=== PATIENT | female | born 1965 | race Caucasian/White ===

== ENCOUNTER 2020-12-26 09:11 | Outpatient (REF) | payer OTHER, SELFPAY ==
[2020-12-26 09:38] LABS: MANUAL DIFF FLAG NO
[2020-12-26 09:42] LABS: Basophils Percent Auto 0.5 % (0-2); Eosinophils Absolute Auto 0.2 X10*3/uL (0.0-0.4); Eosinophils Percent Auto 2.1 % (0-4); Hemoglobin 12.6 g/dl (12.0-16.0); Imm Gran Abs Auto 0.02 X10*3/uL (0.00-0.03); Imm Gran Pct Auto 0.2 % (0.0-0.4); Lymphocytes Absolute Auto 3.3 X10*3/uL (1.2-4.9); Lymphocytes Percent Auto 37.4 % (20-40); Mean Corpuscular HGB Conc 32.3 g/dl (31.0-35.0); Mean Corpuscular Hemoglobin 29.6 pg (27.0-33.0); Mean Corpuscular Volume 91.8 fL (80-98); Mean Platelet Volume 9.5 fL (9.4-12.3); Monocytes Absolute Auto 0.6 X10*3/uL (0.1-1.2); Monocytes Percent Auto 7.1 % (2-11); Neutrophils Absolute Auto 4.7 X10*3/uL (2.0-8.3); Neutrophils Percent Auto 52.7 % (45-73); Platelet Count 273 X10*3/uL (160-400); Red Blood Count 4.25 X10*6/uL (4.20-5.50); Red Cell Distribution Width 12.7 % (11.0-16.0); White Blood Count 8.9 X10*3/uL (4.8-10.8)
[2020-12-26 10:28] LABS: Anion Gap 7 (12-20); Blood Urea Nitrogen 15 mg/dL (9-16); Carbon Dioxide 30 mmol/L (22-29); Chloride 108 mmol/L (96-108); Estimated Glomerular Filt Rate > 60; Glucose Random 74 mg/dL (60-115); Sodium 141 mmol/L (135-145)
[2020-12-26 11:38] LABS: Erythrocyte Sedimentation Rate 10 MM/HR (0-20)
== END 2020-12-26 09:12 | disposition home or self-care (01) ==
LOC: HO.LAB 09:11
PROVIDERS: Visit Provider Psychiatry & Neurology Neurology
DX: G44.209 Tension-type headache, unspecified, not intractable (principal)
CPT/HCPCS: 36415; 80048; 85025; 85652

== ENCOUNTER 2021-02-02 10:23 | Outpatient (REF) | payer OTHER, SELFPAY ==
--- NOTE | ~2021-02-02 | CT_ITS ---
EXAMINATION: CT HEAD WITHOUT CONTRAST CLINICAL INFORMATION: Tension headaches. COMPARISON: None TECHNIQUE: Contiguous axial imaging was performed from the skull base to vertex without intravenous administration of contrast. This CT examination was performed using dose optimization techniques as appropriate, variously including the following: *Automated exposure control *Adjustment of mA and/or kV according to patient size (this includes techniques or standardized protocols for targeted exams where dose is matched to indication/reason for exam; i.e. extremities or head) *Use of iterative reconstruction technique DLP: 764 mGy-cm FINDINGS: There is no evidence of acute intracranial hemorrhage or territorial infarction. No abnormal mass effect or midline shift is seen. There is a small hypodensity in the upper left medulla oblongata on axial image 6/2. Hammond to white matter differentiation is well preserved. No extra-axial fluid collections are identified. The ventricles are normal in size. There is no abnormal attenuation within the brain parenchyma. The osseous structures and soft tissues are normal. The mastoid air cells and visualized portions of the paranasal sinuses are well aerated. CT/CT head/brain wo con IMPRESSION: No acute intracranial process seen. There is a small hypodensity in the left medulla oblongata visualized on axial and sagittal projection. Question cystic neoplasm or volume averaging subarachnoid space along the fourth ventricle. Recommend MRI brain correlation.
== END 2021-02-02 10:24 | disposition home or self-care (01) ==
LOC: HO.CT 10:23
PROVIDERS: Visit Provider Psychiatry & Neurology Neurology
DX: G44.209 Tension-type headache, unspecified, not intractable (principal)
CPT/HCPCS: 70450

== ENCOUNTER 2021-03-15 08:16 | Outpatient (REF) | payer OTHER, SELFPAY ==
--- NOTE | ~2021-03-15 | MR_ITS ---
MR BRAIN WITHOUT AND WITH CONTRAST CLINICAL INFORMATION: Left medullary lesion on CT. Headache. COMPARISON: CT head 02/02/2021. TECHNIQUE: Multiplanar, multisequence MRI of the brain was obtained before and after the intravenous administration of 7.5 mL Gadavist. FINDINGS: There is no pathologic intracranial enhancement. Mild chronic microangiopathy. There is no hydrocephalus, extra-axial surface collection, or herniation. The major flow voids at the skull base are preserved. There is no acute infarct on diffusion-weighted imaging. There is no intracranial hemorrhage on the gradient recalled echo acquisition. The midline structures are normal. The cerebellar tonsils are normally positioned. The cerebellum and brainstem are normal. The craniocervical junction is normal. Osseous marrow signal intensity is homogenous. The visualized soft tissues are unremarkable. MR/MR head/brain wo/w con IMPRESSION: Previously seen apparent hypodensity within the left medulla on CT was artifactual. There is no abnormal signal within the brainstem. Mild chronic microangiopathy. No enhancing lesions.
== END 2021-03-15 08:17 | disposition home or self-care (01) ==
LOC: HO.MRI 08:16
PROVIDERS: Visit Provider Psychiatry & Neurology Neurology
DX: G93.9 Disorder of brain, unspecified (principal)
CPT/HCPCS: 70553; A9585

== ENCOUNTER 2021-05-18 09:46 | Outpatient (REF) | payer OTHER, SELFPAY ==
[2021-05-18 10:03] LABS: MANUAL DIFF FLAG NO
[2021-05-18 10:51] LABS: Basophils Absolute Auto 0.1 X10*3/uL (0.0-0.2); Basophils Percent Auto 0.6 % (0-2); Eosinophils Absolute Auto 0.1 X10*3/uL (0.0-0.4); Eosinophils Percent Auto 1.5 % (0-4); Hematocrit 38.7 % (37.0-47.0); Hemoglobin 12.6 g/dl (12.0-16.0); Imm Gran Abs Auto 0.02 X10*3/uL (0.00-0.03); Imm Gran Pct Auto 0.2 % (0.0-0.4); Lymphocytes Absolute Auto 3.6 X10*3/uL (1.2-4.9); Lymphocytes Percent Auto 41.2 % (20-40); Mean Corpuscular HGB Conc 32.6 g/dl (31.0-35.0); Mean Corpuscular Hemoglobin 29.7 pg (27.0-33.0); Mean Corpuscular Volume 91.3 fL (80.0-98.0); Mean Platelet Volume 9.7 fL (9.4-12.3); Monocytes Absolute Auto 0.6 X10*3/uL (0.1-1.2); Monocytes Percent Auto 6.7 % (2-11); Neutrophils Absolute Auto 4.3 x10*3/uL (2.0-8.3); Neutrophils Percent Auto 49.8 % (45-73); Platelet Count 282 X10*3/uL (160-400); Red Blood Count 4.24 X10*6/uL (4.20-5.50); Red Cell Distribution Width 12.9 % (11.0-16.0); White Blood Count 8.7 X10*3/uL (4.8-10.8)
[2021-05-18 11:24] LABS: Alanine Aminotransferase 28 U/L (0-31); Alkaline Phosphatase 63 U/L (39-117); Anion Gap 10 (12-20); Aspartate Amino Transferase 18 U/L (5-31); Bilirubin Total 0.4 mg/dL (0.0-1.0); Blood Urea Nitrogen 12 mg/dL (9-16); Calcium 8.8 mg/dL (8.4-10.2); Carbon Dioxide 28 mmol/L (22-29); Chloride 104 mmol/L (96-108); Cholesterol 262 mg/dL; Estimated Glomerular Filt Rate > 60; Glucose Fasting 82 mg/dL (60-99); HDL Cholesterol 41 mg/dL; LDL Cholesterol Calculated 182 mg/dl; Potassium 4.2 mmol/L (3.3-5.1); Sodium 138 mmol/L (135-145); Total Protein 7.3 g/dL (6.5-8.0); Triglycerides 196 mg/dL
== END 2021-05-18 09:47 | disposition home or self-care (01) ==
LOC: HO.LAB 09:46
PROVIDERS: PCP Nurse Practitioner Family; Visit Provider Nurse Practitioner Family
DX: Z00.00 Encounter for general adult medical examination without abnormal findings (principal); Z13.1 Encounter for screening for diabetes mellitus; E78.5 Hyperlipidemia, unspecified; E78.00 Pure hypercholesterolemia, unspecified; I10 Essential (primary) hypertension
CPT/HCPCS: 36415; 80053; 80061; 84443; 85025

== ENCOUNTER 2022-11-28 10:50 | Outpatient (REF) | payer OTHER, SELFPAY ==
[2022-12-01 01:04] LABS: HPV mRNA E6/E7 rflx Not Detected (Not Detected)
== END 2022-11-28 10:51 | disposition home or self-care (01) ==
LOC: HO.LAB 10:50
PROVIDERS: Visit Provider Internal Medicine
DX: Z01.419 Encounter for gynecological examination (general) (routine) without abnormal findings (principal)
CPT/HCPCS: 87624; 88142

== ENCOUNTER 2022-11-29 10:30 | Outpatient (REF) | payer OTHER, SELFPAY ==
[2022-11-29 11:04] LABS: MANUAL DIFF FLAG NO
[2022-11-29 11:29] LABS: Basophils Absolute Auto 0.1 X10*3/uL (0.0-0.2); Basophils Percent Auto 0.8 % (0-2); Eosinophils Absolute Auto 0.2 X10*3/uL (0.0-0.4); Hematocrit 39.5 % (37.0-47.0); Hemoglobin 12.7 g/dl (12.0-16.0); Imm Gran Abs Auto 0.03 X10*3/uL (0.00-0.03); Imm Gran Pct Auto 0.3 % (0.0-0.4); Lymphocytes Absolute Auto 3.8 X10*3/uL (1.2-4.9); Lymphocytes Percent Auto 41.2 % (20-40); Mean Corpuscular HGB Conc 32.2 g/dl (31.0-35.0); Mean Corpuscular Hemoglobin 29.3 pg (27.0-33.0); Mean Platelet Volume 9.4 fL (9.4-12.3); Monocytes Absolute Auto 0.5 X10*3/uL (0.1-1.2); Monocytes Percent Auto 5.4 % (2-11); Neutrophils Absolute Auto 4.7 x10*3/uL (2.0-8.3); Neutrophils Percent Auto 50.3 % (45-73); Platelet Count 281 X10*3/uL (160-400); Red Blood Count 4.34 X10*6/uL (4.20-5.50); Red Cell Distribution Width 12.6 % (11.0-16.0); White Blood Count 9.2 X10*3/uL (4.8-10.8)
[2022-11-29 12:10] LABS: Alanine Aminotransferase 55 U/L (0-31); Anion Gap 12 (12-20); Aspartate Amino Transferase 29 U/L (5-31); Blood Urea Nitrogen 11 mg/dL (9-16); Calcium 9.1 mg/dL (8.4-10.2); Carbon Dioxide 26 mmol/L (22-29); Chloride 106 mmol/L (96-108); Cholesterol 130 mg/dL; Estimated Glomerular Filt Rate > 60; Glucose Fasting 86 mg/dL (60-99); HDL Cholesterol 43 mg/dL; LDL Cholesterol Calculated 62 mg/dl; Potassium 4.4 mmol/L (3.3-5.1); Sodium 140 mmol/L (135-145); Triglycerides 128 mg/dL
[2022-11-29 12:23] LABS: Folate 17.4 ng/mL (> or = 4.0); TSH reflex Free T4 1.62 uIU/mL (0.32-4.0); Vitamin B12 1202 pg/mL (200-900); Vitamin D 25-OH Total 36.1 ng/mL (>30)
== END 2022-11-29 10:31 | disposition home or self-care (01) ==
LOC: HO.HMGCLDS 10:30
PROVIDERS: PCP Internal Medicine; Visit Provider Internal Medicine
DX: Z13.1 Encounter for screening for diabetes mellitus (principal); R51.9 Headache, unspecified; E28.319 Asymptomatic premature menopause; E78.5 Hyperlipidemia, unspecified
CPT/HCPCS: 36415; 80048; 80061; 82306; 82607; 82746; 84443; 84450; 84460; 85025

== ENCOUNTER → 2022-12-20 08:51 | Outpatient (BNVA) | payer OTHER, SELFPAY | PROVIDERS: Visit Provider Nurse Practitioner | DX: Z01.818 Encounter for other preprocedural examination (principal) | CPT/HCPCS: 99202 ==

== ENCOUNTER 2023-01-11 08:36 | Outpatient (REF) | payer OTHER, SELFPAY ==
--- NOTE | ~2023-01-11 | MM_ITS ---
EXAMINATION: MM SCREENING DIGITAL BREAST TOMOSYNTHESIS, BILATERAL CLINICAL INFORMATION: Screening. Asymptomatic. The lifetime risk of breast cancer based on the Tyrer-Cuzick Model is 2.9%. COMPARISON: Mammography: There are no prior mammograms for comparison. TECHNIQUE: Digital breast tomosynthesis is performed in both the craniocaudal and mediolateral oblique views along with computer-aided detection (CAD). Synthesized 2D images are generated from the tomosynthesis. FINDINGS: There are scattered areas of fibroglandular density (ACR BI-RADS breast composition Category b). There are no significant masses, abnormal calcifications, or other abnormalities. There are scattered, punctate, benign calcifications in the upper quadrants of each breast. MM/MM tomosynthesis screening BI IMPRESSION: No mammographic evidence of malignancy. ASSESSMENT: BI-RADS BI-RADS 2 - Benign Findings RECOMMENDATION: Routine annual mammography screening. 1 year F/U This examination should not preclude the clinical evaluation of a suspicious palpable abnormality. This patient's information was entered into a reminder system with a target due date for their next mammogram.
== END 2023-01-11 08:37 | disposition home or self-care (01) ==
LOC: HO.MAMMO 08:36
PROVIDERS: Visit Provider Internal Medicine
DX: Z12.31 Encounter for screening mammogram for malignant neoplasm of breast (principal)
CPT/HCPCS: 77063; 77067

== ENCOUNTER → 2023-01-11 08:45 | Outpatient (BNV) | payer OTHER, SELFPAY | PROVIDERS: Visit Provider Radiology Diagnostic Radiology | DX: Z12.31 Encounter for screening mammogram for malignant neoplasm of breast (principal) | CPT/HCPCS: 77063; 77067 ==

== ENCOUNTER 2023-05-24 08:45 | Outpatient (REF) | payer OTHER, SELFPAY ==
[2023-05-24 10:48] LABS: Alanine Aminotransferase 24 U/L (0-31); Aspartate Amino Transferase 17 U/L (5-31); Cholesterol 132 mg/dL (<200); HDL Cholesterol 46 mg/dL (>40); LDL Cholesterol Calculated 64 mg/dL (<100); Triglycerides 114 mg/dL (<150)
[2023-05-24 11:17] LABS: Folate 14.1 ng/mL (> or = 4.0); Vitamin B12 805 pg/mL (200-900)
== END 2023-05-24 08:46 | disposition home or self-care (01) ==
LOC: HO.HMGCLDS 08:45
PROVIDERS: PCP Internal Medicine; Visit Provider Internal Medicine
DX: R74.8 Abnormal levels of other serum enzymes (principal); E78.5 Hyperlipidemia, unspecified
CPT/HCPCS: 36415; 80061; 82607; 82746; 84450; 84460

== ENCOUNTER 2023-05-29 10:40 | Outpatient (AMB) | payer OTHER, SELFPAY ==
--- NOTE | 2023-05-29 10:53 | A.OFFPC_ITS ---
Vital Signs 05/29/23 10:54 Height 5 ft 6 in Weight 159 lb 2 oz BMI 25.7 BP 128/82 Blood Pressure Location Lt brachial Position Sitting Pulse 64 Pulse Source Pulse Oximeter Pulse Oximetry (%) 97 Oxygen Delivery Method Room Air Intake Visit Reasons: 6m follow up lipids Intake Note: pt is here to follow up for lab results Allergies atorvastatin Adverse Reaction (Mild, Verified 11/06/23 09:39) Headaches Medication List - Last Reconciled 05/29/23 by Antoinette Varghese MD peg 3350-electrolytes 236-22.74-6.74 -5.86 gram (Golytely) 240 mL PO Q10M 1 day rosuvastatin 10 mg PO DAILY Tobacco use date assessed: 05/29/23 Dental Screening Dental Screen Date: 05/29/23 Did you have a dental visit in the last 12 months?: Yes Did you have a dental problem in the last 6 months where you did not have access to dental care?: No Was dental information given to patient?: Patient has dentist HPI 6m follow up lipids HPI Details 57-year-old lady here today for follow-u p on her lipids. Currently on rosuvastatin 10 mg taken once a day. Has been compliant with healthy eating habits, but admits to not getting any regular exercise. Recent fasting labs done showed normal lipids and liver enzymes, vitamin B12 also has returned to normal levels. [facility]LY [facility] Medical History Early menopause occurring in patient age younger than 45 years Dyslipidemia Surgical History History of Family History Mother Prediabetes Father Family history of prostate problems Maternal Aunt Alzheimer's dementia Social History Housing: House Patient Tobacco Use Status: Never used Tobacco Tobacco use type: Cigarette e-Cigarette/Vaping Use: Never Used Second Hand Smoke Exposure: No service: No Current occupational status: employed Cognitive needs: No Hearing needs: No Vision needs: No Questionnaire Thrive Questionnaire Date Thrive assessed: 11/28/22 LEO-7 AMB Questionnaire LEO-7 Date LEO - 7 assessed: 11/28/22 Source: Developed by Drs. Blayne Quiñones, Herminia Jensen, Marek Thurman and colleagues, with an educational chandana from [employer]. Review of Systems Const Denies body aches, Denies fatigue, Denies fever(s), Reports headache(s) (occasional) and Denies weakness Eyes Denies change in vision ENT Denies dizziness, Reports headache(s) (occasional), Denies nasal congestion, Denies nasal discharge and Denies sore throat Card Denies chest pain, Denies lightheadedness, Denies palpitations and Denies dyspnea Resp Details: Has intermittent episodes of coughing fits after talking for extended periods of time Denies chest congestion, Denies dyspnea and Denies wheezing GI Denies abdominal pain, Denies change in bowel habits and Denies heartburn Denies hematuria, Denies urinary frequency, Denies dysuria and Denies urinary urgency Musc Reports no additional complaints Neuro Denies dizziness, Reports headache(s) (occasional) and Denies weakness Psych Reports no additional complaints Endo Details: Vasomotor symptoms with hot flashes Denies fatigue, Denies polydipsia, Denies polyuria and Denies palpitations Hong/Lymph Denies easy bruising Aller/Immun Denies seasonal rhinorrhea and Denies wheezing Physical exam (Primary Care) Vital Signs: Last Vital Signs Pulse 64 05/29/23 10:54 BP 128/82 05/29/23 10:54 Pulse Ox 97 05/29/23 10:54 Oxygen Delivery Method Room Air 05/29/23 10:54 BMI result Body Mass Index 25.7 Tobacco/Smoking Status: Tobacco use Status Tobacco use date assessed 05/29/23 05/29/23 10:58 Patient Tobacco Use Status Never used Tobacco 05/29/23 10:53 Tobacco use type Cigarette 05/29/23 10:53 e-Cigarette/Vaping Use Never Used 05/29/23 10:53 Thrive Assessment: Date of Thrive Assessment Date Thrive assessed 11/28/22 05/29/23 10:53 Const General: cooperative, no acute distress, well developed, alert and awake HENMT Head: Yes normocephalic Ears: external ears normal and TM's normal bilaterally General nose exam: Normal external nose present Face and sinus: Yes face symmetric Mouth: Normal oral and palatal mucosa present, tongue normal, oropharynx normal and moist mucous membranes Throat: Yes posterior oropharynx normal, Yes tonsils normal and Yes uvula midline Eyes General: appearance normal, both eyes and all related structures Eyelids: Yes eyelids normal Conjunctivae: conjunctivae normal Sclerae: sclerae normal Pupils: Equal, round and reactive pupils present Neck Neck: Yes normal visual inspection and Yes no lymphadenopathy Lymphatic: no lymphadenopathy noted Resp Effort & Inspection: normal respiratory effort and able to speak in complete sentences Auscultation: clear to auscultation bilaterally Cardio Rate: regular rate Rhythm: regular rhythm Heart sounds: S1 normal heart sound present and S2 normal heart sound present Neuro General: gait normal and moves all extremities Cranial nerves: Yes Equal, round and reactive pupils present Gait exam (Neuro): Normal gait present Results Reviewed Results Reviewed: ENTERED: 05/24/23 RAYA MCCRAY: ORDERED: AST, ALT, Lipid Panel Test Result Flag Reference Site AST (GOT) 17 5-31 U/L ALT (GPT) 24 0-31 U/L Triglyceride 114 <150 mg/dL Desirable Triglyceride: less than 150 mg/dL Borderline High Triglyceride 150-199 mg/dL High Triglyceride: 200-499 mg/dL Very High Triglyceride: greater than or equal to 5OO mg/dL Cholesterol 132 <200 mg/dL Desirable Cholesterol: less than 200 mg/dL Borderline High Cholesterol: 200-239 mg/dL High Cholesterol: greater than 239 mg/dL LDL Calculated 64 <100 mg/dL Desirable LDL: less than 100 mg/dL Near Optimal/Above Optimal LDL: 110-129 mg/dL Borderline High LDL: 130-159 mg/dL High LDL: 160-189 mg/dL Very High LDL: greater than or equal to 190 mg/dL HDL 46 >40 mg/dL Desirable HDL: greater than 40 mg/dL Note: This HDL assay may give artificially low results in patients with liver disease. Assessment and Plan Assessment & Plan (1) Dyslipidemia: Code(s): E78.5 - Hyperlipidemia, unspecified Plan: Reviewed recent fasting lipid profile with patient with levels within normal limits . Continue rosuvastatin 10 mg daily , in addition to adherence to low-cholesterol diet and regular exercise, at least 30 minutes 3 to 4 times a week. Advised patient to make healthy food choices, eat more fruits, vegetables, whole grains, wild caught fish and low-fat dairy. Limit amount of meat and fried or fatty food products, as well as processed foods and fast foods. Follow-up scheduled with repeat fasting lipid panel in months. Coding Level of Care Code Est Pt Level 4 (13097) Complex EM visit Add On G2211 Diagnoses Dyslipidemia E78.5
[2023-05-29 10:54] VITALS: BP 128/82; PULSE 64; O2SAT 97; BMI 25.7
== END 2023-05-29 12:33 | disposition home or self-care (01) ==
PROVIDERS: Visit Provider Internal Medicine
DX: E78.5 Hyperlipidemia, unspecified (principal)
CPT/HCPCS: 99499

== ENCOUNTER 2023-06-07 09:22 | Day surgery (SDC) | payer OTHER, SELFPAY ==
--- NOTE | 2023-06-06 10:08 | HO.ANESPROP2 ---
Documented by User: Elena Kennedy NP 06/06/23 10:09 HPI - Anesthesia Eval Consult details Narrative: 57yo F for Colonoscopy PMFSH Active Problems Active Problems: All Active Problems (Updated 05/29/23 @ 11:48 by Antoinette Varghese MD) Early menopause occurring in patient age younger than 45 years (Acute) Dyslipidemia (Acute) Headache (Acute) Past Medical History Medical History (Updated 05/29/23 @ 11:48 by Antoinette Varghese MD) Early menopause occurring in patient age younger than 45 years Dyslipidemia Family History Family History (Updated 05/29/23 @ 11:49 by Antoinette Varghese MD) Mother Prediabetes Father Family history of prostate problems Maternal Aunt Alzheimer's dementia Surgical History Surgical History History of Social History Social History Housing: House Patient Tobacco Use Status: Never used Tobacco Tobacco use type: Cigarette e-Cigarette/Vaping Use: Never Used Second Hand Smoke Exposure: No Are you DNR?: No Advance Directives: No Advance Directives Information Provided: Yes Nutrition Risks: No Nutritional Risk service: No Current occupational status: employed Cognitive needs: No Hearing needs: No Vision needs: No Meds Allergies Allergy/AdvReac Type Severity Reaction Status Date / Time atorvastatin AdvReac Mild Headaches Verified 06/07/23 10:55 Exam Pertinent Lab Results Pertinent Lab Results: Laboratory Tests 11/29/22 10:04 WBC 9.2 Hgb 12.7 Hct 39.5 Plt Count 281 Sodium 140 Potassium 4.4 Chloride 106 Carbon Dioxide 26 BUN 11 Creatinine 0.70 Assessment and Plan Assessment Anesthesia Assessment: Chart Reviewed Documented by User: Ida Nevarez MD 06/07/23 11:01 PMFSH Past Medical History Medical History (Updated 05/29/23 @ 11:48 by Antoinette Varghese MD) Early menopause occurring in patient age younger than 45 years Dyslipidemia Family History Family History (Updated 05/29/23 @ 11:49 by Antoinette Varghese MD) Mother Prediabetes Father Family history of prostate problems Maternal Aunt Alzheimer's dementia Family history of problems with anesthesia: No Surgical History Surgical History History of History of Problems with Anesthesia: No Social History Social History Housing: House Patient Tobacco Use Status: Never used Tobacco Tobacco use type: Cigarette e-Cigarette/Vaping Use: Never Used Second Hand Smoke Exposure: No Are you DNR?: No Advance Directives: No Advance Directives Information Provided: Yes Nutrition Risks: No Nutritional Risk service: No Current occupational status: employed Cognitive needs: No Hearing needs: No Vision needs: No Meds Allergies Allergy/AdvReac Type Severity Reaction Status Date / Time atorvastatin AdvReac Mild Headaches Verified 06/07/23 10:55 Exam Airway Mallampati Class: II TM Dist: >3cm Neck ROM: Full Heart: rrr Lungs: cta Assessment and Plan Assessment Anesthesia Assessment: Anesthesia Plan Discussed Final Anesthetic Review Family History of Problems with Anesthesia: No History of Problems with Anesthesia: No NPO: Yes ASA Class: II Final Preanesthetic Review: No Changes in Pt Med Stat, Meds/Allgs Chart Reviewed and Consent Obtained/Reviewed Patient Risk: Intermediate Procedure Risk: Intermediate Anesthetic Plan Anesthetic Plan: MAC: Disposition: Standard PACU
--- NOTE | 2023-06-07 10:35 | MHC.SHP ---
Pre-Procedural Eval Section A Date of Service: 06/07/23 The patient is an INPATIENT: No The History & Physical has been completed within 30 days and I have reviewed it.: No Section B Chief Complaint: Colon cancer screening Relevant Family History (Specify if Yes): No Relevant Social History: None Present Medications: see Short Stay Collaborative assessment Medical History: Significant History (Dyslipidemia Early menopause occurring in patient age younger than 45 years Throat irritation) History of Previous Operations: Relevant previous surgery/procedure and date(s) (History of ) Allergies: Allergies Allergy/AdvReac Type Severity Reaction Status Date / Time atorvastatin AdvReac Mild Headaches Verified 05/29/23 11:47 Plan Diagnosis/Plan: Unchanged I have reviewed the history and physical and performed a pertinent physical examination on my patient. No changes have occurred unless specified. Time Spent With Patient Time: Total time managing care of this patient today ____ minutes.
[2023-06-07] MEDS: Lactated Ringers 1,000 ML 100 ML IVCONT (10:57)
[2023-06-07 11:07] VITALS: BP 125/83; PULSE 85; RESP 18; TEMP 36.6; O2SAT 98; BMI 24.9
--- NOTE | 2023-06-07 11:45 | W.PM.OPN ---
Operative Note Operative Note Date of Service: 06/07/23 Narrative: COLONOSCOPY TILL CECUM WITH BIOPSIES Pre-op diagnosis: Colon cancer screening (1st colonoscopy) Post-op diagnosis:? Colon polyps, diverticulosis, hemorrhoids Endoscopist:? Claudia Velasquez MD Anesthesia:?MAC Consent: Indications for the procedure and potential complications of bleeding, perforation, reaction to medications and missed diagnosis were discussed with the patient and informed consent was obtained. Instrument: Olympus PCF H 190 L variable stiffness pediatric colonoscope Monitoring: Vital signs and clinical assessment, intermittent blood pressure monitoring, continuous EKG monitoring, Pulse oximetry and Carbon Dioxide monitoring were done throughout the procedure. Please see anesthesia flowsheet. Colon withdrawl time was 14 minutes. Procedure: The patient was placed in the left lateral decubitis position and pre-procedure medications were administered. After a digital rectal examination of the ano-rectum, the video colonoscope was inserted into the rectum and advanced through the colon to the cecum. The colonoscope was slowly withdrawn in a retrograde panoramic fashion and the colon mucosa was carefully examined including a retroflexed view of the rectum. Findings and interventions are described below. Procedure Difficulty: Without difficulty Findings: Terminal Ileum: Not evaluated Cecum: Normal Ascending Colon: A 2-3 mm sessile polyp in the mid AC - removed with a cold biopsy Scattered moderate diverticulosis throughout the colon Transverse Colon: Scattered moderate diverticulosis throughout the colon Descending Colon: Scattered moderate diverticulosis throughout the colon Sigmoid Colon: A 4-5 mm sessile polyp versus inverted diverticulum - biopsied. Moderate diverticulosis Rectum: Normal Ano-rectum: Moderate internal hemorrhoids Colon preparation: Excellent Impression and Post Procedure Diagnosis: Colonoscopy Findings: Two small polyps removed Moderate diverticulosis seen in the entire colon Moderate hemorrhoids on retroflexed exam. Plan: Await pathology results Patient has an appointment on 06/19/23 in the [facility] with Diane Peralta NP. Repeat Colonoscopy interval based on path results - in 5 years if polyps are adenomatous and 10 years if polyps are hyperplastic. Above findings were reviewed with the patient and colon polyps and diverticulosis handouts were given in the discharge area
[2023-06-07 11:48] VITALS: BP 97/65; PULSE 70; RESP 16; TEMP 37.1; O2SAT 97
[2023-06-07 11:53] VITALS: BP 109/70; PULSE 67; RESP 16; O2SAT 97
[2023-06-07 12:03] VITALS: BP 116/78; PULSE 68; RESP 20; TEMP 36.4; O2SAT 98
[2023-06-07] MEDS: Acetaminophen 325 MG TABLET 650 MG PO (12:06)
== END 2023-06-07 12:30 | disposition home or self-care (01) ==
PROVIDERS: PCP Internal Medicine; Visit Provider Internal Medicine Gastroenterology
PROC: 0DJD8ZZ Inspection of Lower Intestinal Tract, Via Natural or Artificial Opening Endoscopic (ICD-10-PCS; CPT 45378; principal; 2023-06-07 11:00)
DX: Z12.11 Encounter for screening for malignant neoplasm of colon (principal); K63.5 Polyp of colon; K57.30 Diverticulosis of large intestine without perforation or abscess without bleeding; K64.8 Other hemorrhoids; E78.5 Hyperlipidemia, unspecified; Z79.02 Long term (current) use of antithrombotics/antiplatelets
CPT/HCPCS: 45380; 88305; J2704

== ENCOUNTER → 2023-06-07 09:22 | Outpatient (BNV) | payer OTHER, SELFPAY | PROVIDERS: PCP Internal Medicine; Visit Provider Internal Medicine Gastroenterology | DX: Z12.11 Encounter for screening for malignant neoplasm of colon (principal); K57.30 Diverticulosis of large intestine without perforation or abscess without bleeding; K64.8 Other hemorrhoids; D12.2 Benign neoplasm of ascending colon; D12.5 Benign neoplasm of sigmoid colon | CPT/HCPCS: 45380 ==

== ENCOUNTER 2023-06-19 09:22 | Outpatient (AMB) | payer OTHER, SELFPAY ==
--- NOTE | 2023-06-19 09:24 | A.OFFVIS_ITS ---
Intake Vital Signs 06/19/23 09:27 Height 5 ft 6 in Weight 155 lb BMI 25.0 BP 120/77 Blood Pressure Location Lt brachial Position Sitting Pulse 67 Intake Visit Reasons: s/p colon francois Intake Note: Patient presents to in office visit today in post operative follow up s/p colonoscopy. CC: Arelis underwent colonoscopy on 06/07/[address] Velasquez. Patient reports doing very well today and vignesh having any GI problem or concerns. 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 She had a problem with mid abdominal pain that was severe couple of years ago [place] but no cause was found in she never had a recurrence. She suffers a hoarse voice but otherwise no upper GI problems. There are no prior problems with anesthesia or sedation. She denies any cardiac or respiratory problems. NO ID problems. There is no known FHX crc or polyps. COLONOSCOPY 06/07/23 Findings: Terminal Ileum: Not evaluated Cecum: Normal Ascending Colon: A 2-3 mm sessile polyp in the mid AC - removed with a cold biopsy Scattered moderate diverticulosis throughout the colon Transverse Colon: Scattered moderate diverticulosis throughout the colon Descending Colon: Scattered moderate diverticulosis throughout the colon Sigmoid Colon: A 4-5 mm sessile polyp versus inverted diverticulum - biopsied. Moderate diverticulosis Rectum: Normal Ano-rectum: Moderate internal hemorrhoids Colon preparation: Excellent Impression and Post Procedure Diagnosis: Colonoscopy Findings: Two small polyps removed Moderate diverticulosis seen in the entire colon Moderate hemorrhoids on retroflexed exam. Plan: Await pathology results Patient has an appointment on 06/19/23 in the GI Clinic with Diane Peralta NP. Repeat Colonoscopy interval based on path results - in 5 years if polyps are adenomatous and 10 years if polyps are hyperplastic. BIOPSY Received: 06/07/23 Diagnosis A. Colon, ascending, polypectomy: Colonic mucosa with mild surface hyperplastic changes. B. Colon, sigmoid, polypectomy: Colonic mucosa with mild surface hyperplastic changes. COMMENT: Multiple additional levels are examined on both blocks TODAY'S VISIT She is agreeable to a 10 year recall. The procedure was well tolerated. The results were explained and the patient is agreeable to the follow-up interval as stated. The bowel pattern has returned to normal. Education was provided to tell any 1st degree relatives about their findings to be sure that they are screened by age 45. Educated that they will be put on a recall list when it is time for their repeat scope but should they move out of state or away from the hospital they will need to remember along with their primary to repeat the procedure in a timely fashion to avoid any adverse complications. [facility] Medical History Early menopause occurring in patient age younger than 45 years Dyslipidemia Surgical History History of Family History Mother Prediabetes Father Family history of prostate problems Maternal Aunt Alzheimer's dementia Social History Housing: House Patient Tobacco Use Status: Never used Tobacco Tobacco use type: Cigarette e-Cigarette/Vaping Use: Never Used Second Hand Smoke Exposure: No service: No Current occupational status: employed Cognitive needs: No Hearing needs: No Vision needs: No Review of Systems Const Denies fatigue, Denies fever(s), Denies night sweats, Denies poor appetite and Denies weight loss ENT Reports Normal hearing present, Denies dental pain, Denies dysphagia, Denies hearing loss, Denies mouth pain, Denies odynophagia, Denies throat swelling, Denies tongue swelling and Reports other (Dentition adequate) Card Reports no additional complaints Resp Reports no additional complaints GI Denies abdominal pain, Denies melena, Denies bloating, Denies hematochezia, Denies constipation, Denies GI cramping, Denies dysphagia, Denies excessive flatus, Denies early satiety, Denies heartburn, Denies diarrhea, Denies nausea, Denies odynophagia, Denies vomiting and Denies hematemesis Skin/Breast Denies pruritus, Denies lesions, Denies rash and Denies jaundice Neuro Reports Normal hearing present and Denies Abnormal speech present Endo Denies fatigue Aller/Immun Denies throat swelling and Denies tongue swelling Physical Exam Vital Signs: Last Vital Signs Pulse 67 06/19/23 09:27 BP 120/77 06/19/23 09:27 BMI result Body Mass Index 25.0 Const General: cooperative, no acute distress, well developed and well groomed Nutritional Appearance: average body habitus and well nourished Orientation/consciousness: oriented to person, oriented to place and oriented to time Limitations: No language barrier HEENT Head: Yes normocephalic and Yes atraumatic Eyes General: appearance normal, both eyes and all related structures Pupils: Equal, round and reactive pupils present Neck Neck: Yes normal visual inspection and Yes no lymphadenopathy Thyroid: Thyroid normal Resp Effort & Inspection: normal respiratory effort and able to speak in complete sentences Auscultation: clear to auscultation bilaterally Cardio Rate: regular rate Rhythm: regular rhythm Heart sounds: Normal, physiologic split S2 sound present Peripheral pulses: radial pulses present and posterior tibial pulses present GI Inspection: No distended and No Abdominal panniculus present Palpation (GI): Soft to palpation, nontender, no guarding, not rigid and No hepatosplenomegaly present Percussion: Yes normal to percussion Auscultation: normal bowel sounds Rectal Exam - Female: deferred Skin General skin exam: no rashes or lesions noted, turgor normal, skin not dry, no jaundice, No spider nevi and no striae Rashes: no rashes Nails: normal Neuro General: oriented to person, oriented to place and oriented to time Cranial nerves: Yes Equal, round and reactive pupils present and Yes Normal hearing present Speech: No Abnormal speech present Extrem General: Yes normal to inspection, No clubbing, No cyanosis and No edema Psych Appearance: grossly normal and well kempt Mental Status: mental status grossly normal Speech and movement: Normal speech and movement present Affect: normal affect Attitude: cooperative Thought process: Normal thought process present and not confabulating Thought content: Normal thought content present Insight: Good insight present (Psych) Judgement: Good judgement present (Psych) Assessment & Plan Assessment & Plan (1) H/O colonoscopy: Comment: 2022= hyperplastic polyps only repeat in 10 years Code(s): Z98.890 - Other specified postprocedural states Plan She is agreeable to a 10 year recall. The procedure was well tolerated. The results were explained and the patient is agreeable to the follow-up interval as stated. The bowel pattern has returned to normal. Education was provided to tell any 1st degree relatives about their findings to be sure that they are screened by age 45. Educated that they will be put on a recall list when it is time for their repeat scope but should they move out of state or away from the hospital they will need to remember along with their primary to repeat the p rocedure in a timely fashion to avoid any adverse complications. Coding Level of Care Code Est Pt Level 3 (23850) Diagnoses H/O colonoscopy Z98.890
[2023-06-19 09:27] VITALS: BP 120/77; PULSE 67; BMI 25.0
== END 2023-06-19 10:17 | disposition home or self-care (01) ==
PROVIDERS: Visit Provider Nurse Practitioner
DX: Z98.890 Other specified postprocedural states (principal)
CPT/HCPCS: 99213

== ENCOUNTER → 2023-06-19 09:22 | Outpatient (BNVA) | payer OTHER, SELFPAY | PROVIDERS: Visit Provider Nurse Practitioner | DX: Z98.890 Other specified postprocedural states (principal) | CPT/HCPCS: 99212 ==

== ENCOUNTER 2023-11-06 09:27 | Outpatient (AMB) | payer OTHER, SELFPAY ==
[2023-11-06 09:32] VITALS: BP 120/70; PULSE 67; TEMP 36.3; O2SAT 97; BMI 25.8
--- NOTE | 2023-11-06 09:32 | AM.OFFWIN_ITS ---
Intake Vital Signs 11/06/23 09:32 Height 5 ft 6 in Weight 160 lb BMI 25.8 BP 120/70 Blood Pressure Location Lt brachial Position Sitting Pulse 67 Pulse Source Pulse Oximeter Temp 97.4 F Temp Source Temporal Artery Scan Pulse Oximetry (%) 97 Oxygen Delivery Method Room Air Intake Visit Reasons: EP lft side neck pain Intake Note: pt is here today for lft side neck pain started 2 weeks ago Patient Tobacco Use Status: Never used Tobacco Allergies atorvastatin Adverse Reaction (Mild, Verified 11/06/23 09:39) Headaches Do you need a note to return to daycare/school/sports/work: No HPI HPI Comments History of Present Illness Details 58 y/o female patient who [facility] with c/o chronic persistent headaches on/off for few years now. Denies vision changes. Denies Nausea or vomiting. Denies light or sound sensitivity. Currently has no headache, took Acetaminophen with good relief. [facility] Medical History Early menopause occurring in patient age younger than 45 years Dyslipidemia Surgical History History of Family History Mother Prediabetes Father Family history of prostate problems Maternal Aunt Alzheimer's dementia Social History Housing: House Patient Tobacco Use Status: Never used Tobacco Tobacco use type: Cigarette e-Cigarette/Vaping Use: Never Used Second Hand Smoke Exposure: No service: No Current occupational status: employed Cognitive needs: No Hearing needs: No Vision needs: No Review of Systems Const All systems reviewed & are unremarkable except as noted in HPI and below Physical Exam Vital Signs: Last Vital Signs Temp 97.4 F 11/06/23 09:32 Pulse 67 11/06/23 09:32 BP 120/70 11/06/23 09:32 Pulse Ox 97 11/06/23 09:32 Oxygen Delivery Method Room Air 11/06/23 09:32 BMI result Body Mass Index 25.8 Const General: comfortable and no acute distress Nutritional Appearance: well nourished Orientation/consciousness: patient oriented x3 HEENT Head: Yes normocephalic Ears: external ears normal General nose exam: Normal external nose present Face and sinus: Yes normal facial exam Eyes Conjunctivae: conjunctivae normal Corneas: corneas normal Pupils: Equal, round and reactive pupils present EOM: EOMs intact bilaterally Neuro General: patient oriented x3, gait normal and moves all extremities Cranial nerves: Yes Equal, round and reactive pupils present Psych Speech and movement: Normal speech and movement present Assessment & Plan Assessment & Plan (1) Headache: Code(s): R51.9 - Headache, unspecified Qualifiers: Headache type: tension-type Headache chronicity pattern: chronic headache Intractability: not intractable Qualified Code(s): G44.229 - Chronic tension-type headache, not intractable Plan: - Keep a headache dairy -Avoid triggers - Recomm referral to Neurology -Acetaminophen for pain relief. Coding Level of Care Code Est Pt Level 3 (85352) Diagnoses Chronic tension-type headache, not intractable G44.229 Headache type: tension-type Headache chronicity pattern: chronic headache Intractability: not intractable Time Spent (min) 15
== END 2023-11-06 10:31 | disposition home or self-care (01) ==
PROVIDERS: PCP Internal Medicine; Visit Provider Nurse Practitioner Family
DX: G44.229 Chronic tension-type headache, not intractable (principal)
CPT/HCPCS: 99213

== ENCOUNTER 2024-03-24 08:35 | Outpatient (REF) | payer OTHER, SELFPAY ==
[2024-03-24 10:56] LABS: Alanine Aminotransferase 18 U/L (0-31); Aspartate Amino Transferase 15 U/L (5-31); Cholesterol 294 mg/dL (<200); Glucose Fasting 92 mg/dL (60-99); HDL Cholesterol 39 mg/dL (>40); LDL Cholesterol Calculated 219 mg/dL (<100); Triglycerides 183 mg/dL (<150)
== END 2024-03-24 08:36 | disposition home or self-care (01) ==
LOC: HO.HMGCLDS 08:35
PROVIDERS: PCP Internal Medicine; Visit Provider Internal Medicine
DX: E78.5 Hyperlipidemia, unspecified (principal); Z13.1 Encounter for screening for diabetes mellitus
CPT/HCPCS: 36415; 80061; 82947; 84450; 84460

== ENCOUNTER 2024-03-26 11:24 | Outpatient (AMB) | payer OTHER, SELFPAY ==
[2024-03-26 12:07] VITALS: BP 110/70; PULSE 68; O2SAT 97; BMI 25.0
--- NOTE | 2024-03-26 12:07 | MHC.PC.OV ---
Vital Signs 03/26/24 12:07 Height 5 ft 6 in Weight 155 lb BMI 25.0 BP 110/70 Blood Pressure Location Rt brachial Position Sitting Pulse 68 Pulse Source Pulse Oximeter Pulse Oximetry (%) 97 Oxygen Delivery Method Room Air Intake Visit Reasons: Annual PE Intake Note: Pt is here today for her PE: last mammogram 01/11/23, papsmear 11/29/22, colonoscopy 06/07/23 Allergies atorvastatin Adverse Reaction (Mild, Verified 03/26/24 12:38) Headaches Medication List - Last Reconciled 03/26/24 by Antoinette Varghese MD Tobacco use date assessed: 03/26/24 Dental Screening Dental Screen Date: 03/26/24 Did you have a dental visit in the last 12 months?: No Did you have a dental problem in the last 6 months where you did not have access to dental care?: No Was dental information given to patient?: No HPI Annual PE HPI Details 58-year-old lady with hyperlipidemia currently on rosuvastatin 10 mg daily, here today for physical exam. Last mammogram 07/20/23, bone density scan 11/21/12 and colonoscopy 04/16/19. Up-to-date with her cervical cancer screening, done last year. [facility] Medical History Early menopause occurring in patient age younger than 45 years Dyslipidemia Surgical History History of Family History Mother Prediabetes Father Family history of prostate problems Maternal Aunt Alzheimer's dementia Social History Housing: House Patient Tobacco Use Status: Never used Tobacco Tobacco use type: Cigarette e-Cigarette/Vaping Use: Never Used Second Hand Smoke Exposure: No service: No Current occupational status: employed Cognitive needs: No Hearing needs: No Vision needs: No Questionnaire PHQ-9 Over the last 2 weeks, how often have you been bothered by any of the following problems? 1. Little interest or pleasure in doing things: not at all 2. Feeling down, depressed, or hopeless: not at all 3. Trouble falling or staying asleep, or sleeping too much: not at all 4. Feeling tired or having little energy: not at all 5. Poor appetite or overeating: not at all 6. Feeling bad about yourself - or that you are a failure or have let yourself or your family down: not at all 7. Trouble concentrating on things, such as reading the newspaper or watching television: not at all 8. Moving or speaking so slowly that other people could have noticed. Or the opposite - being so fidgety or restless that you have been moving around a lot more than usual: not at all 9. Thoughts that you would be better off or of hurting yourself in some way: not at all Total score: 0 Depression Screening Interpretation: Negative Depression Screening Done: Yes 96169 - PHQ-9 Billing: Yes Source: Developed by Drs. Blayne Quiñones, Herminia Jensen, Marke Thurman and colleagues, with an educational chandana from [employer]. Thrive Questionnaire Date Thrive assessed: 03/24/24 I am a: Patient What is your living situation today?: I have a steady place to live Within the past 12 months, did the food you bought not last and you didn't have the money to get more?: Never true Within the past 12 months, did you worry whether your food would run out before you got money to buy more?: Never true Do you have trouble paying for medicines?: No Do you have trouble getting transportation to medical appointments?: No Do you have trouble paying your heating and electricity bill?: No Do you have trouble taking care of your child, family member or friend?: No Do you have trouble with day-to-day activities such as bathing, preparing meals, shopping, managing finances, etc.?: No Are you interested in more education?: Yes Please select the resources that you would like help with: Education Currently or been in a relationship where the following occur: No concerns reported THRIVE Score: 0 AUDIT C Alcohol Use Questionnaire (AUDIT-C) 1. How often do you have a drink containing alcohol?: Never 3. How often do you have six or more drinks on one occasion?: Never Total Score: 0 LEO-7 AMB Questionnaire LEO-7 Date LEO - 7 assessed: 03/26/24 Feeling nervous, anxious, or on edge: 0 = Not at all Not being able to stop or control worryin = Not at all Worrying too much about different things: 0 = Not at all Trouble relaxin = Not at all Being so restless that it is hard to sit still: 0 = Not at all Becoming easily annoyed or irritable: 2 = More than half the days Feeling afraid as if something awful might happen: 0 = Not at all Total LEO-7 score (0-4 normal; 5-9 mild; 10-14 moderate; 15-21 severe): 2 Source: Developed by Drs. Blayne Quiñones, Herminia Jensen, Marek Thurman and colleagues, with an educational chandana from [employer]. LEO-7 Assessment Billing LEO-7 Assessment Tool: LEO-7 Assessment 21892 Review of Systems Const Denies body aches, Denies fatigue, Denies fever(s), Reports headache(s) (occasional), Denies weakness and Reports weight loss Eyes Denies change in vision ENT Denies dizziness, Reports headache(s) (occasional), Denies nasal congestion, Denies nasal discharge and Denies sore throat Card Denies chest pain, Denies lightheadedness, Denies palpitations and Denies dyspnea Resp Details: Has intermittent episodes of coughing fits after talking for extended periods of time Denies chest congestion, Denies dyspnea and Denies wheezing GI Denies abdominal pain, Denies change in bowel habits and Denies heartburn Denies hematuria, Denies urinary frequency, Denies dysuria and Denies urinary urgency Musc Reports no additional complaints Skin/Breast Denies breast pain, Denies breast mass and Denies rash Neuro Denies dizziness, Reports headache(s) (occasional) and Denies weakness Psych Reports no additional complaints Endo Details: Vasomotor symptoms with hot flashes Denies fatigue, Denies polydipsia, Denies polyuria and Denies palpitations Hong/Lymph Denies easy bruising Aller/Immun Denies seasonal rhinorrhea and Denies wheezing Physical exam (Primary Care) Vital Signs: Last Vital Signs Pulse 68 03/26/24 12:07 BP 110/70 03/26/24 12:07 Pulse Ox 97 03/26/24 12:07 Oxygen Delivery Method Room Air 03/26/24 12:07 BMI result Body Mass Index 25.0 Tobacco/Smoking Status: Tobacco use Status Tobacco use date assessed 03/26/24 03/26/24 12:09 Patient Tobacco Use Status Never used Tobacco 03/26/24 12:09 Tobacco use type Cigarette 03/26/24 12:09 e-Cigarette/Vaping Use Never Used 03/26/24 12:09 PHQ-9: PHQ-9 Score PHQ-9: Total score 0 03/26/24 12:39 Depression Screening Interpretation: Negative Thrive Assessment: Date of Thrive Assessment Date Thrive assessed 03/24/24 03/26/24 12:09 Currently or been in a relationship where the following occur: No concerns reported Const General: cooperative, no acute distress, well developed, alert and awake HENMT Head: Yes normocephalic Ears: external ears normal and TM's normal bilaterally General nose exam: Normal external nose present Face and sinus: Yes face symmetric Mouth: Normal oral and palatal mucosa present, tongue normal, oropharynx normal and moist mucous membranes Throat: Yes posterior oropharynx normal Eyes General: appearance normal, both eyes and all related structures Eyelids: Yes eyelids normal Conjunctivae: conjunctivae normal Sclerae: sclerae normal Pupils: Equal, round and reactive pupils present Neck Neck: Yes normal visual inspection and Yes no lymphadenopathy Lymphatic: no lymphadenopathy noted Chest Chest palpation & inspection: normal inspection of the chest Breast/axilla inspection: normal inspection of the breasts Breast/axilla palpation: normal palpation of the breasts Resp Effort & Inspection: normal respiratory effort and able to speak in complete sentences Auscultation: clear to auscultation bilaterally Cardio Rate: regular rate Rhythm: regular rhythm Heart sounds: S1 normal heart sound present and S2 normal heart sound present Bruits: no abdominal aortic bruits GI Palpation (GI): No Abdominal aortic bruit present, Soft to palpation, nontender, no guarding and no masses Auscultation: normal bowel sounds General: Yes no CVA tenderness Back/Spine/Pelvis Back: no CVA tenderness and No back tenderness Skin Other: Small bolus spot on front hairline Neuro General: gait normal and moves all extremities Cranial nerves: Yes Equal, round and reactive pupils present Gait exam (Neuro): Normal gait present Extrem General: Yes full ROM, Yes no joint enlargement, Yes no calf tenderness and Yes normal gait Psych Appearance: grossly normal and well kempt Mental Status: mental status grossly normal Speech and movement: Normal speech and movement present Affect: normal affect Thought process: Normal thought process present Thought content: Normal thought content present Results Reviewed Results Reviewed: Name: Arelis Rivera Age/Sex: 58/F : 1965 Unit#: [id number] Attend Dr: Antoinette Varghese MD Re03/24/24 Status: DEP REF Location: [facility] Disch: SPEC : [id number] IRMA: 03/24/24 STATUS: COMP REQ : [id number] RECD: 03/24/[address]: Antoinette Varghese MD COMP: 03/24/24 ENTERED: 03/24/24 [facility] DR: ORDERED: Glu Fasting, AST, ALT, Lipid Panel Test Result Flag Reference FBS 92 60-99 mg/dL AST (GOT) 15 5-31 U/L ALT (GPT) 18 0-31 U/L Triglyceride 183 H <150 mg/dL Desirable Triglyceride: less than 150 mg/dL Borderline High Triglyceride 150-199 mg/dL High Triglyceride: 200-499 mg/dL Very High Triglyceride: greater than or equal to 5OO mg/dL Cholesterol 294 H <200 mg/dL Desirable Cholesterol: less than 200 mg/dL Borderline High Cholesterol: 200-239 mg/dL High Cholesterol: greater than 239 mg/dL LDL Calculated 219 H <100 mg/dL Desirable LDL: less than 100 mg/dL Near Optimal/Above Optimal LDL: 110-129 mg/dL Borderline High LDL: 130-159 mg/dL High LDL: 160-189 mg/dL Very High LDL: greater than or equal to 190 mg/dL HDL 39 L >40 mg/dL Desirable HDL: greater than 40 mg/dL Note: This HDL assay may give artificially low results in patients with liver disease. Assessment and Plan Assessment & Plan (1) Annual visit for general adult medical examination with abnormal findings: Code(s): Z00.01 - Encounter for general adult medical examination with abnormal findings Plan: Recent fasting lab results reviewed with patient.. Recommended dental visit every 6 months and regular eye exams, at least every 2 years. Take adequate calcium in diet and vitamin-D 3 at 2000 IU per cap once a day, in addition to weight-bearing exercises to help maintain good muscle tone and weight control. Instructed to do self-breast exam, and continue with yearly mammogram, up-to-date with her cervical cancer screening , and up-to-date with her screening colonoscopy. Reminded to get her yearly flu vaccine and COVID booster, and recommended getting vaccinated against herpes zoster (2) Alopecia areata: Code(s): L63.9 - Alopecia areata, unspecified Plan: Bald Spot on frontal hairline, dermatology consult ordered (3) Dyslipidemia: Code(s): E78.5 - Hyperlipidemia, unspecified Plan: Reviewed recent fasting lipid profile with patient with levels . Started back again on atorvastatin 10 mg, initially take 1 tablet once a week for 1 week and then twice a week on the 2nd week and increase dosing frequency as tolerated. Reinforced importance of following a low-cholesterol diet and getting regular exercise, at least 30 minutes 3 to 4 times a week. Advised patient to make healthy food choices, eat more fruits, vegetables, whole grains, wild caught fish and low-fat dairy. Limit amount of meat and fried or fatty food products, as well as processed foods and fast foods. Follow-up scheduled with repeat fasting lipid panel in 3 months. Orders: Orders Alanine Aminotransferase 05/31/24 E78.5 - Hyperlipidemia, unspecified Lipid Panel 05/31/24 E78.5 - Hyperlipidemia, unspecified Aspartate Amino Transferase 05/31/24 E78.5 - Hyperlipidemia, unspecified Vitamin D 25-OH Total 05/31/24 E78.5 - Hyperlipidemia, unspecified Creatine Kinase Total 05/31/24 E78.5 - Hyperlipidemia, unspecified Referrals Dermatology Referral L63.9 - Alopecia areata, unspecified Medications: New atorvastatin 10 mg PO DAILY 90 tabs 1RF E78.5 - Hyperlipidemia, unspecified cholecalciferol (vitamin D3) 50 mcg PO DAILY 90 caps 3RF Coding Level of Care Code Est Pt Prev Care 40-64y(30111) Diagnoses Annual visit for general adult medical examination with abnormal findings Z00.01 Alopecia areata L63.9 Dyslipidemia E78.5 Additional Codes LEO-7 Assessment Billing - LEO-7 Assessment Tool: LEO-7 Assessment 59848 ([id number])
== END 2024-03-26 14:01 | disposition home or self-care (01) ==
PROVIDERS: PCP Internal Medicine; Visit Provider Internal Medicine
DX: Z00.01 Encounter for general adult medical examination with abnormal findings (principal); L63.9 Alopecia areata, unspecified; E78.5 Hyperlipidemia, unspecified

== ENCOUNTER → 2024-03-26 11:24 | Outpatient (BNVA) | payer OTHER, SELFPAY | PROVIDERS: PCP Internal Medicine; Visit Provider Internal Medicine | DX: Z00.01 Encounter for general adult medical examination with abnormal findings (principal); L63.9 Alopecia areata, unspecified; E78.5 Hyperlipidemia, unspecified | CPT/HCPCS: 96127; 99396 ==

== ENCOUNTER 2024-09-25 12:08 | Outpatient (REF) | payer SELFPAY ==
[2024-09-25 17:08] LABS: Influenza A PCR NEGATIVE (Negative); Influenza B PCR NEGATIVE (Negative); Resp Syncy Virus RNA Qual PCR NEGATIVE (Negative); SARS COV2 PCR INHOUSE NEGATIVE (Negative)
== END 2024-09-25 12:09 | disposition home or self-care (01) ==
LOC: HO.LAB 12:08
PROVIDERS: Physician Assistant; PCP Internal Medicine
DX: J02.0 Streptococcal pharyngitis (principal); R09.89 Other specified symptoms and signs involving the circulatory and respiratory systems; R05.8 Other specified cough
CPT/HCPCS: 0241U; 87880; 99212

== ENCOUNTER 2024-09-25 12:08 | Outpatient (AMB) | payer OTHER, SELFPAY ==
[2024-09-25 13:02] VITALS: BP 110/74; PULSE 72; TEMP 36.7; O2SAT 96; BMI 24.7
--- NOTE | 2024-09-25 13:02 | AM.OFFWIN_ITS ---
Intake Vital Signs 09/25/24 13:02 Height 5 ft 6 in Weight 153 lb BMI 24.7 BP 110/74 Blood Pressure Location Lt brachial Position Sitting Pulse 72 Pulse Source Pulse Oximeter Temp 98.0 F Temp Source Oral Pulse Oximetry (%) 96 Oxygen Delivery Method Room Air Intake Visit Reasons: EP Sore throat, headache Intake Note: Patient here for headaches,sore throat, taste has changed that has been present for 1 week. Patient Tobacco Use Status: Never used Tobacco Allergies rosuvastatin Adverse Reaction (Mild, Verified 09/25/24 13:09) headaches Do you need a note to return to daycare/school/sports/work: No HPI HPI Comments History of Present Illness Details History - The patient is a 59-year-old female pr esenting with a sore throat and head congestion x 6 days - She describes waking up multiple times during the night with heaviness in her head and the sensation of something in her throat, resulting in difficulty swallowing both food and liquids. - Changes in taste are reported, with al terations in the flavor of sauces and water. - She denies fever, shortness of breath, wheezing, ear pain, sinus pain, nausea, vomiting, and fatigue, though cough is occasionally present. - No home testing for COVID-19 has been done. . Physical Exam General: Cooperative, healthy appearing, comfortable and no acute distress Orientation/consciousness: Patient oriented x3 Limitations: No limitations Head: Normal to inspection Ears: Hearing grossly normal bilaterally, external ears normal and TM's normal bilaterally Nose: Normal external nose present, Normal nares present and No nasal discharge present Face and sinus: Normal facial exam and Yes sinuses nontender Mouth: Normal oral and palatal mucosa present and moist mucous membranes Throat: Yes tonsils normal, Yes uvula midline. Posterior oropharynx erythema, no exudates Eyes: Appearance normal, both eyes and all related structures Neck: Normal visual inspection Respiratory: Normal respiratory effort, able to speak in complete sentences, no respiratory distress, not tachypneic, no tripod positioning and no use of accessory muscles Skin: No rashes or lesions noted Neuro: Patient oriented x3 Extremities: Normal to inspection and Yes no clubbing, cyanosis or edema PFSH Medical History Early menopause occurring in patient age younger than 45 years Dyslipidemia Surgical History History of Family History Mother Prediabetes Father Family history of prostate problems Maternal Aunt Alzheimer's dementia Social History Housing: House Patient Tobacco Use Status: Never used Tobacco Tobacco use type: Cigarette e-Cigarette/Vaping Use: Never Used Second Hand Smoke Exposure: No service: No Current occupational status: employed Cognitive needs: No Hearing needs: No Vision needs: No Review of Systems Const All systems reviewed & are unremarkable except as noted in HPI and below Physical Exam Vital Signs: Last Vital Signs Temp 98.0 F 09/25/24 13:02 Pulse 72 09/25/24 13:02 BP 110/74 09/25/24 13:02 Pulse Ox 96 09/25/24 13:02 Oxygen Delivery Method Room Air 09/25/24 13:02 BMI result Body Mass Index 24.7 Assessment & Plan Assessment & Plan (1) Strep pharyngitis: Code(s): J02.0 - Streptococcal pharyngitis Plan: VSS, pt well appearing and PE remarkable for posterior oropharynx erythema. Rapid strep positive. The therapeutic approach for the patient's symptoms centers around the confirmed diagnosis of Streptococcal Pharyngitis. Treatment involves administering Amoxicillin at 500 mg twice daily for a 10-day course, effectively addressing the bacterial etiology. Educational points on the transmission dynamics of Streptococcal infection were discussed, emphasizing preventive hygiene measures. Concurrent viral infections will be ruled out through testing for influenza, COVID-19, and RSV. Coordination for result follow-up has been set to review and adjust the treatment strategy if required based on diagnostic findings. Patient was informed and verbally consented to the use of an ambient scribe for clinic note documentation during this visit Orders: Orders SARS-CoV2/FLU/RSV Today R09.89 - Other specified symptoms and signs involving the circulatory and respiratory systems Medications: New amoxicillin 500 mg PO Q12H 20 tabs 0RF Coding Level of Care Code Est Pt Level 3 (44919) Diagnoses Strep pharyngitis J02.0
== END 2024-09-25 13:45 | disposition home or self-care (01) ==
PROVIDERS: PCP Internal Medicine; Visit Provider Physician Assistant
DX: Z13.9 Encounter for screening, unspecified (principal); J02.0 Streptococcal pharyngitis

== ENCOUNTER 2024-10-07 08:41 | Outpatient (REF) | payer SELFPAY ==
[2024-10-07 11:22] LABS: Alanine Aminotransferase 31 U/L (0-31); Aspartate Amino Transferase 24 U/L (5-31); Cholesterol 190 mg/dL (<200); HDL Cholesterol 43 mg/dL (>40); LDL Cholesterol Calculated 125 mg/dL (<100); Triglycerides 114 mg/dL (<150)
[2024-10-07 11:43] LABS: Vitamin D 25-OH Total 50.9 ng/mL (>30)
== END 2024-10-07 08:42 | disposition home or self-care (01) ==
LOC: HO.HMGCLDS 08:41
PROVIDERS: PCP Internal Medicine; Visit Provider Internal Medicine
DX: E78.5 Hyperlipidemia, unspecified (principal)
CPT/HCPCS: 36415; 80061; 82306; 82550; 84450; 84460

== ENCOUNTER 2024-12-08 09:51 | Outpatient (AMB) | payer OTHER, SELFPAY ==
--- NOTE | 2024-12-08 10:01 | A.OFFVIS_ITS ---
Vital Signs 12/08/24 10:02 Height 5 ft 6 in Weight 154 lb BMI 24.9 BP 102/72 Blood Pressure Location Lt brachial Position Sitting Pulse 68 Pulse Source Pulse Oximeter Pulse Oximetry (%) 96 Oxygen Delivery Method Room Air Intake Visit Reasons: INP-Headaches Administrator Of Home Health Required: No Accompanied by: Self / Same As Patient Allergies rosuvastatin Adverse Reaction (Mild, Verified 12/08/24 10:06) headaches Medication List - Last Reconciled 12/08/24 by JOHN Elkins atorvastatin 10 mg PO DAILY cholecalciferol (vitamin D3) 50 mcg PO DAILY HPI Comments Details: Right-handed 59-yr-old female presents for new pt evaluation of headache disorder. Pt reports she has had headaches her whole life which can be in any place on her head, but in the last year she is having a newer pressure headache in bilateral anterior temporal/masseter region in the last year. She comes today as she would like to further investigate her headaches. She did previously see neurology many years ago. PMH and ROS are notable for:? General: glasses for reading- denies vision changes Neuro: headaches Musculoskeletal disorders or injury: did PT for her back as a teenager, more recently if she sleeps > 6 hrs she will wake up with back pain- her mattress is firm History of concussion/head injury: denies Mood d/o: can be more irritable, impatient, Anxiety. not currently seeing a therapist Respiratory d/o: denies CV disease: HLD- on statin Clotting or hematology d/o: denies Endocrine or metabolic d/o: denies History of seizure: denies. 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 Substance use: denies Exercise:?Excercised regularly before her granddtr was born 6 yrs ago- but not much since- but plans to start again now that she is in school. 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 Age/time of onset: Migraine without aura started in young childhood. New bilateral anterior temporal/masseter region headache started within the last year. Preceding causes: Denies Previous work-up: 2020 brain MRI w/wo- unremarkable- however this was before new bitemporal headache Types of headache disorders: 1-2 Typical headache characteristics: Prodrome symptoms: denies Aura: denies Pain intensity: moderate-severe Location, quality, characteristics: Varies in bilateral masseter throbbing, or pressure in top, back, or either side of head. Associated symptoms: phonophobia, allodynia, nausea, activity intolerance Postdrome: denies Triggers: sometimes stress, skipping coffee Time of day: No specific time of day- may wake her up or can come in the middle of the day Duration and Frequency: Each headache lasts hours, and can occur 2-3 days per week, but then may have a week w/o any headache. How does headache impact your life? tries to push through the headache- but sometimes just has to sit completely still Current acute medication use/interventions: Ibuprofen liquigel 2-3 caps at onset. Current preventative medication use: denies Current non-pharmacological interventions: sitting still/rest [facility] Medical History Early menopause occurring in patient age younger than 45 years Dyslipidemia Surgical History History of Family History Mother Prediabetes Father Family history of prostate problems Maternal Aunt Alzheimer's dementia Social History Housing: House Patient Tobacco Use Status: Never used Tobacco Tobacco use type: Cigarette e-Cigarette/Vaping Use: Never Used Second Hand Smoke Exposure: No service: No Current occupational status: employed Cognitive needs: No Hearing needs: No Vision needs: No Physical Exam Vital Signs: Last Vital Signs Pulse 68 12/08/24 10:02 BP 102/72 12/08/24 10:02 Pulse Ox 96 12/08/24 10:02 Oxygen Delivery Method Room Air 12/08/24 10:02 BMI result Body Mass Index 24.9 Const Orientation/consciousness: patient oriented x3 Resp Effort & Inspection: normal respiratory effort and able to speak in complete sentences Neuro Other: No palpable scalp tenderness. No palpable temporal artery induration Mild bilateral TMJ tightness and joint displacement Mild signs of lower dental wearing Bilateral mild posterior cervical tightness. Cervical ROM: full Left Spurling: normal Right Spurling: normal. General: patient oriented x3 Cranial nerves: Yes CN's II-XII intact bilaterally Cognition (Neuro): normal cognition Gait exam (Neuro): Normal gait present Motor exam (neuro): 5/5 motor strength present throughout Deep tendon reflexes (DTR's): Right triceps reflex intensity grade: 2+, Left triceps reflex intensity grade: 2+, Rt Biceps (C5, C6): 2+, Left biceps reflex intensity grade: 2+, Right brachioradialis reflex intensity grade: 2+, Left brachioradialis reflex intensity grade: 2+, Right patellar reflex intensity grade: 1+ and Left patellar reflex intensity grade: 1+ Coordination: [id number] test normal, tandem gait normal and Romberg test negative Pupils: Normal pupillary reactivity/response: bilateral Psych Appearance: grossly normal Mental Status: mental status grossly normal Speech and movement: Normal speech and movement present Affect: normal affect Attitude: cooperative Thought process: Normal thought process present Results Reviewed Results Reviewed: 03/2021, MR/MR head/brain wo/w con IMPRESSION: Previously seen apparent hypodensity within the left medulla on CT was artifactual. There is no abnormal signal within the brainstem. Mild chronic microangiopathy. No enhancing lesions. Assessment & Plan Assessment & Plan (1) New onset headache: Code(s): R51.9 - Headache, unspecified Category: Medical (2) Migraine without aura: Code(s): G43.009 - Migraine without aura, not intractable, without status migrainosus Category: Medical Plan Pt advised to undergo: Brain MRI w/wo to assess for secondary etiology of new onset bilateral anterior temporal headache in a pt over age 50 yrs old. For overall headache management: * Optimize good self-care, including but not limited to maintaining a healthy diet, adequate fluid intake, adequate sleep, and engaging in regular physical activity. * Track headaches, especially after any treatment regimen changes. Migraine [employer] is one of many headache tracking apps. * Information shared on non-pharmacological interventions which may help to alleviate headache attack burden. For sound sensitivity: Patent may benefit from trying noise cancellation ear plugs. * Trial wearing a low profile mouth guard at bedtime- may help reduce signs of bruxism and bitemporal headache. For acute headache treatment: Discussed importance of taking acute medications at the first sign of headache, however stressed importance of avoiding acute medication overuse (especially with combined headache medications). May continue Ibuprofen liquigel 200mg- 2 caps every 4 hours as needed. Discussed trying Sumatriptan- pt would like to hold until after review of MRI. Previous acute migraine medication trials: none other Acute migraine medication contraindications: None at this time For headache prevention medication: Preventative medications should be taken routinely as prescribed for best effect, it may take several weeks for full effect to take effect. Discussed trying Riboflavin 400mg qam- pt would like to hold until after review of MRI. Start Magnesium 400mg daily at bedtime Previous migraine prevention medication trials: None Migraine prevention medication contraindications: None at this time Pt seen in collaboration w/ Dr Serene Webster. Will follow-up upon review of above and patient to follow-up in clinic in 6 months or sooner prn. Orders: Orders MR head/brain wo/w con Today E78.5 - Hyperlipidemia, unspecified, R51.9 - Headache, unspecified Medications: New magnesium oxide may hold for loose stools 400 mg PO BEDTIME 30 days 30 tabs 6RF Coding Level of Care Code New Pt Level 4 (78190) Diagnoses New onset headache R51.9 Migraine without aura G43.009
[2024-12-08 10:02] VITALS: BP 102/72; PULSE 68; O2SAT 96; BMI 24.9
== END 2024-12-08 11:45 | disposition home or self-care (01) ==
LOC: HO.HSMS 09:52
PROVIDERS: PCP Internal Medicine; Visit Provider Nurse Practitioner Family
DX: R51.9 Headache, unspecified (principal); G43.009 Migraine without aura, not intractable, without status migrainosus
CPT/HCPCS: 99204

== ENCOUNTER → 2024-12-08 09:51 | Outpatient (BNVA) | payer OTHER, SELFPAY | PROVIDERS: PCP Internal Medicine; Visit Provider Nurse Practitioner Family | DX: G43.709 Chronic migraine without aura, not intractable, without status migrainosus (principal) | CPT/HCPCS: 99202 ==

== ENCOUNTER → 2024-12-25 10:07 | Outpatient (BNV) | payer OTHER, SELFPAY | PROVIDERS: PCP Internal Medicine; Visit Provider Radiology Diagnostic Radiology | DX: G44.52 New daily persistent headache (NDPH) (principal) | CPT/HCPCS: 70553 ==

== ENCOUNTER 2024-12-25 10:11 | Outpatient (REF) | payer OTHER, SELFPAY ==
--- NOTE | ~2024-12-25 | MR_ITS ---
EXAMINATION: MR BRAIN WITHOUT AND WITH CONTRAST CLINICAL INFORMATION: Headache. COMPARISON: March 15, 2021 TECHNIQUE: Multiplanar, multisequence MRI of the brain was obtained before and after the intravenous administration of 7.5 mL gadolinium based (Gadavist) without reported immediate complications.. FINDINGS: Patient's motion artifact. No restricted diffusion. No acute intracranial hemorrhage, mass effect, midline shift, hydrocephalus or herniation. Hammond-white matter differentiation is normal. Nonspecific 3 mm nonenhancing no restricted diffusion subcortical white matter hyperintense T2 FLAIR signal, mostly the right cerebral hemisphere. No abnormal enhancement within the intra-axial or the extra-axial compartment of the cranium. Flow-void signal within the main cerebral vessels is normal. Sellar/suprasellar region demonstrated no signal abnormality or masses. Craniocervical junction demonstrates normal position of the cerebellar tonsils. Main cerebral venous sinuses are patent. MR/MR head/brain wo/w con IMPRESSION: No acute brain abnormality. No abnormal enhancement. Nonspecific T2 FLAIR subcortical white matter signal. This could be seen patients with migraines. Overall stable. Electronically signed by: Baljinder Mckay MD 12/25/2024 11:20 AM EDT
[2024-12-25] MEDS: gadobutroL 7.5 ML VIAL IVPUSH (11:02)
== END 2024-12-25 10:12 | disposition home or self-care (01) ==
LOC: HO.MRI 10:11
PROVIDERS: PCP Internal Medicine; Visit Provider Nurse Practitioner Family
DX: R51.9 Headache, unspecified (principal); E78.5 Hyperlipidemia, unspecified
CPT/HCPCS: 70553; A9585

== ENCOUNTER 2025-02-05 12:29 | Outpatient (AMB) | payer OTHER, SELFPAY ==
--- NOTE | 2025-02-05 12:26 | A.OFFVIS_ITS ---
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 * Interval brain MRI on 12/25/2024 compared to 2020 study: stable, non-specific T2 FLAIR subcortical white matter signal changes; no acute abnormality or abnormal enhancement. * MRI images and report reviewed with patient via televideo screen share. * No history of stroke, hypertension, or diabetes. * History of HLD on medication management. * Most recent cholesterol panel (September 2024): triglycerides 114, cholesterol 190, LDL 125, HDL 43 ? improved compared to March 2024. * Reports ongoing bothersome headaches. * Did not initiate previously ordered migraine prevention supplements due to preference to await updated MRI. * Now agreeable to start the supplements as previously ordered and add Co Q10 supplement. * Hesitant to take multiple prescriptions; will continue OTC ibuprofen as needed. 12/08/2024, initial HPI: Right-handed 59-yr-old female presents for new pt evaluation of headache disorder. Pt reports she has had headaches her whole life which can be in any place on her head, but in the last year she is having a newer pressure headache in bilateral anterior temporal/masseter region in the last year. She comes today as she would like to further investigate her headaches. She did previously see neurology many years ago. PMH and ROS are notable for:? General: glasses for reading- denies vision changes Neuro: headaches Musculoskeletal disorders or injury: did PT for her back as a teenager, more recently if she sleeps > 6 hrs she will wake up with back pain- her mattress is firm History of concussion/head injury: denies Mood d/o: can be more irritable, impatient, Anxiety. not currently seeing a therapist Respiratory d/o: denies CV disease: HLD- on statin Clotting or hematology d/o: denies Endocrine or metabolic d/o: denies History of seizure: denies. 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 Substance use: denies Exercise:?Excercised regularly before her granddtr was born 6 yrs ago- but not much since- but plans to start again now that she is in school. 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 Age/time of onset: Migraine without aura started in young childhood. New bilateral anterior temporal/masseter region headache started within the last year. Preceding causes: Denies Previous work-up: 2020 brain MRI w/wo- unremarkable- however this was before new bitemporal headache Types of headache disorders: 1-2 Typical headache characteristics: Prodrome symptoms: denies Aura: denies Pain intensity: moderate-severe Location, quality, characteristics: Varies in bilateral masseter throbbing, or pressure in top, back, or either side of head. Associated symptoms: phonophobia, allodynia, nausea, activity intolerance Postdrome: denies Triggers: sometimes stress, skipping coffee Time of day: No specific time of day- may wake her up or can come in the middle of the day Duration and Frequency: Each headache lasts hours, and can occur 2-3 days per week, but then may have a week w/o any headache. How does headache impact your life? tries to push through the headache- but so metimes just has to sit completely still Current acute medication use/interventions: Ibuprofen liquigel 2-3 caps at onset. Current preventative medication use: denies Current non-pharmacological interventions: sitting still/rest PFSH Medical History Early menopause occurring in patient age younger than 45 years Dyslipidemia Surgical History History of Family History Mother Prediabetes Father Family history of prostate problems Maternal Aunt Alzheimer's dementia Social History Housing: House Patient Tobacco Use Status: Never used Tobacco Tobacco use type: Cigarette e-Cigarette/Vaping Use: Never Used Second Hand Smoke Exposure: No service: No Current occupational status: employed Cognitive needs: No Hearing needs: No Vision needs: No Physical Exam Const Orientation/consciousness: patient oriented x3 Resp Effort & Inspection: normal respiratory effort and able to speak in complete sentences Neuro General: patient oriented x3 Cranial nerves: Yes CN's II-XII intact bilaterally Cognition (Neuro): normal cognition Psych Appearance: grossly normal Mental Status: mental status grossly normal Speech and movement: Normal speech and movement present Affect: normal affect Attitude: cooperative Thought process: Normal thought process present Telehealth Telehealth Telehealth Platform: [employer] Location of provider rendering services: practice address Location of patient: address on file Patient Identification confirmed using: Name, : Yes Telehealth method: video Patient verbally consented to treatment: Yes Patient verbally consented to billing insurance company: Yes Patient informed of any privacy concerns related to visit: Yes Minutes spent on Phone/Video with Pt.: 24 Results Reviewed Results Reviewed: 03/2021, MR/MR head/brain wo/w con IMPRESSION: Previously seen apparent hypodensity within the left medulla on CT was artifactual. There is no abnormal signal within the brainstem. Mild chronic microangiopathy. No enhancing lesions. Assessment & Plan Assessment & Plan (1) Migraine without aura: Code(s): G43.009 - Migraine without aura, not intractable, without status migrainosus Category: Medical Qualifiers: Status migrainosus presence: without status migrainosus Intractability: not intractable Qualified Code(s): G43.009 - Migraine without aura, not intractable, without status migrainosus (2) White matter abnormality on MRI of brain: Comment: Very mild focal changes. 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 Patient encouraged to continue to optimize her cardiovascular and metabolic risk factors. In addition to engaging in regular physical activity, maintaining an optimal sleep schedule is also important. For overall headache management: * Optimize good self-care, including but not limited to maintaining a healthy diet, adequate fluid intake, adequate sleep, and engaging in regular physical activity. * Track headaches, especially after any treatment regimen changes. [employer] is one of many headache tracking apps. * Information shared on non-pharmacological interventions which may help to alleviate headache attack burden. For sound sensitivity: Patent may benefit from trying noise cancellation ear plugs. * Trial wearing a low profile mouth guard at bedtime- may help reduce signs of bruxism and bitemporal headache. For acute headache treatment: Discussed importance of taking acute medications at the first sign of headache, however stressed importance of avoiding acute medication overuse (especially with combined headache medications). May continue Ibuprofen liquigel 200mg- 2 caps every 4 hours as needed. Discussed trying Sumatriptan- pt would like to hold until after review of MRI. Previous acute migraine medication trials: none other Acute migraine medication contraindications: None at this time For headache prevention medication: Preventative medications should be taken routinely as prescribed for best effect, it may take several weeks for full effect to take effect. Start Riboflavin 400mg daily in the morning Start Magnesium 400mg daily at bedtime Start Co Q10 400 mg daily in the morning, take with a higher fat meal. Previous migraine prevention medication trials: None Migraine prevention medication contraindications: None at this time Follow-up in clinic (patient may follow-up via tele video due to transportation difficulties) as scheduled or sooner as needed. Medications: New riboflavin (vitamin B2) 400 mg PO DAILY 90 tabs 3RF 90 days coenzyme Q10 (Co Q-10) qam, take w/ higher fat meal. 400 mg PO DAILY 90 caps 3RF 90 days Changed From magnesium oxide may hold for loose stools 400 mg PO BEDTIME 30 days 30 tabs 6RF To magnesium oxide may hold for loose stools 400 mg PO BEDTIME 90 tabs 3RF 90 days Coding Level of Care Code Tele Est Pt Level 4 (50295) Diagnoses Migraine without aura and without status migrainosus, not intractable G43.009 Status migrainosus presence: without status migrainosus Intractability: not intractable White matter abnormality on MRI of brain R90.82
== END 2025-02-05 16:21 | disposition home or self-care (01) ==
LOC: HO.HSMS 12:29
PROVIDERS: PCP Internal Medicine; Visit Provider Nurse Practitioner Family
DX: G43.009 Migraine without aura, not intractable, without status migrainosus (principal); R90.82 White matter disease, unspecified
CPT/HCPCS: 99214

== ENCOUNTER 2025-05-03 08:43 | Outpatient (AMB) | payer OTHER, SELFPAY ==
--- NOTE | 2025-05-03 09:20 | A.OFFPC_ITS ---
Vital Signs 05/03/25 09:26 Height 5 ft 6 in Weight 157 lb BMI 25.3 BP 108/70 Blood Pressure Location Rt brachial Position Sitting Pulse 67 Pulse Source Pulse Oximeter Temp 97.9 F Temp Source Oral Pulse Oximetry (%) 97 Oxygen Delivery Method Room Air Intake Visit Reasons: Annual PE Intake Note: Pt is here today for her PE: mammogram 01/11/23, papsmear 11/29/22, colonoscopy 06/07/23 Form Maker Required: No Allergies rosuvastatin Adverse Reaction (Mild, Verified 05/03/25 09:50) headaches Medication List - Last Reconciled 05/03/25 by Antoinette Varghese MD atorvastatin 10 mg PO DAILY cholecalciferol (vitamin D3) 50 mcg PO DAILY Tobacco use date assessed: 05/03/25 Dental Screening Dental Screen Date: 05/03/25 Did you have a dental visit in the last 12 months?: No Did you have a dental problem in the last 6 months where you did not have access to dental care?: No Was dental information given to patient?: Patient has dentist HPI Annual PE HPI Details 59-year-old lady with history of dyslipi demia, migraine without aura, in early menopause, here today for her physical exam. She is up-to-date with her colon cancer screening, last done 2022 with hyperplastic polyps removed by Dr. Velasquez, repeat due again in 2032. Up-to-date with her cervical cancer screening done in 2022 with negative findings. She however is due for her routine breast cancer screening, last one was done in 2022 with benign findings . The patient has been on atorvastatin for dyslipidemia and has shown remarkable improvement in her cholesterol levels. Her LDL cholesterol decreased from 219 mg/dL in March of the previous year to 125 mg/dL in September. Her triglycerides were 114 mg/dL. The patient reports a history of ongoing headaches for the past two years, occurring almost every other day and sometimes for 4-5 consecutive days. The pain is diffuse, occurring on the top and back of the head, and is not associated with aura symptoms like flickering lights or wavy lines. Tylenol and coffee provide relief, but she tries to avoid frequent medication use. She has seen a neurologist for her headaches and underwent a brain MRI in November of the previous year, which revealed non-specific 3 mm white matter changes consistent with migraines, but no acute findings. The neurologist diagnosed her with migraine without aura and recommended a preventative regimen of vitamin B2 (riboflavin), CoQ10, and magnesium, but has not been taking these medications. . Additional history includes menopausal hair thinning and occasional tinnitus, which is more noticeable in quiet settings. She reports being active with housework but does not engage in regular intentional exercise. Her diet is generally balanced, though she reports a habit of eating cake at night. [facility] Medical History Early menopause occurring in patient age younger than 45 years Dyslipidemia Surgical History History of Family History Mother Prediabetes Father Family history of prostate problems Maternal Aunt Alzheimer's dementia Social History (Updated 05/08/25 @ 22:38 by Antoinette Varghese MD) Housing: House Patient Tobacco Use Status: Never used Tobacco e-Cigarette/Vaping Use: Never Used Second Hand Smoke Exposure: No service: No Current occupational status: employed Cognitive needs: No Hearing needs: No Vision needs: No Female Reproductive History Menstrual Menopause type: natural Questionnaire PHQ-9 Over the last 2 weeks, how often have you been bothered by any of the following problems? 1. Little interest or pleasure in doing things: not at all 2. Feeling down, depressed, or hopeless: not at all 3. Trouble falling or staying asleep, or sleeping too much: not at all 4. Feeling tired or having little energy: not at all 5. Poor appetite or overeating: not at all 6. Feeling bad about yourself - or that you are a failure or have let yourself or your family down: not at all 7. Trouble concentrating on things, such as reading the newspaper or watching television: not at all 8. Moving or speaking so slowly that other people could have noticed. Or the opposite - being so fidgety or restless that you have been moving around a lot more than usual: not at all 9. Thoughts that you would be better off or of hurting yourself in some way: not at all Total score: 0 Depression Screening Interpretation: Negative Depression Screening Done: Yes 48833 - PHQ-9 Billing: Yes Source: Developed by Drs. Blayne Quiñones, Herminia Jensen, Marek Thurman and colleagues, with an educational chandana from [employer]. Thrive Questionnaire Date Thrive assessed: 04/26/25 I am a: Patient What is your living situation today?: I have a steady place to live Within the past 12 months, did the food you bought not last and you didn't have the money to get more?: Never true Within the past 12 months, did you worry whether your food would run out before you got money to buy more?: Never true Do you have trouble paying for medicines?: I choose not to answer this question Do you have trouble getting transportation to medical appointments?: No Do you have trouble paying your heating and electricity bill?: No Do you have trouble taking care of your child, family member or friend?: No Do you have trouble with day-to-day activities such as bathing, preparing meals, shopping, managing finances, etc.?: No Are you currently unemployed and looking for a job?: No Are you interested in more education?: Yes Please select the resources that you would like help with: None Currently or been in a relationship where the following occur: No concerns reported THRIVE Score: 0 AUDIT C Alcohol Use Questionnaire (AUDIT-C) 1. How often do you have a drink containing alcohol?: Monthly or less 2. How many drinks containing alcohol do you have on a typical day when you are drinking?: 1 or 2 3. How often do you have six or more drinks on one occasion?: Never Total Score: 1 Score Reviewed/Action Taken: Yes LEO-7 AMB Questionnaire LEO-7 Date LEO - 7 assessed: 05/03/25 Feeling nervous, anxious, or on edge: 0 = Not at all Not being able to stop or control worryin = Not at all Worrying too much about different things: 0 = Not at all Trouble relaxin = Not at all Being so restless that it is hard to sit still: 0 = Not at all Becoming easily annoyed or irritable: 1 = Several days Feeling afraid as if something awful might happen: 0 = Not at all Total LEO-7 score (0-4 normal; 5-9 mild; 10-14 moderate; 15-21 severe): 1 Source: Developed by Drs. Blayne Quiñones, Herminia Jensen, Marek Thurman and colleagues, with an educational chandana from [employer]. LEO-7 Assessment Billing LEO-7 Assessment Tool: LEO-7 Assessment 51002 Review of Systems Const Denies body aches, Denies fatigue, Denies fever(s) and Denies weakness Eyes Denies change in vision ENT Denies dizziness, Denies nasal congestion and Denies nasal discharge Card Denies chest pain, Denies lightheadedness, Denies palpitations and Denies dyspnea Resp Denies dyspnea and Denies wheezing GI Denies abdominal pain, Denies change in bowel habits and Denies heartburn Denies hematuria, Denies urinary frequency, Denies dysuria and Denies urinary urgency Musc Reports no additional complaints Skin/Breast Denies breast pain, Denies breast mass and Denies rash Neuro Reports as per HPI, Denies dizziness and Denies weakness Psych Reports no additional complaints Endo Details: Vasomotor symptoms with hot flashes Denies fatigue, Denies polydipsia, Denies polyuria and Denies palpitations Hong/Lymph Denies easy bruising Aller/Immun Denies seasonal rhinorrhea and Denies wheezing Physical exam (Primary Care) Vital Signs: Last Vital Signs Temp 97.9 F 05/03/25 09:26 Pulse 67 05/03/25 09:26 BP 108/70 05/03/25 09:26 Pulse Ox 97 05/03/25 09:26 Oxygen Delivery Method Room Air 05/03/25 09:26 BMI result Body Mass Index 25.3 Tobacco/Smoking Status: Tobacco use Status Tobacco use date assessed 05/03/25 05/03/25 09:22 Patient Tobacco Use Status Never used Tobacco 05/03/25 09:22 Tobacco use type Cigarette 05/03/25 09:22 e-Cigarette/Vaping Use Never Used 05/03/25 09:22 PHQ-9: PHQ-9 Score PHQ-9: Total score 0 05/03/25 10:21 Depression Screening Interpretation: Negative Thrive Assessment: Date of Thrive Assessment Date Thrive assessed 04/26/25 05/03/25 09:22 Currently or been in a relationship where the following occur: No concerns reported Const General: no acute distress, well developed and alert HENMT Head: Yes normocephalic Ears: external ears normal and TM's normal bilaterally General nose exam: Normal external nose present Face and sinus: Yes face symmetric Mouth: Normal oral and palatal mucosa present and moist mucous membranes Eyes General: appearance normal, both eyes and all related structures Eyelids: Yes eyelids normal Conjunctivae: conjunctivae normal Sclerae: sclerae normal Pupils: Equal, round and reactive pupils present Neck Neck: Yes normal visual inspection and Yes no lymphadenopathy Lymphatic: no lymphadenopathy noted Chest Chest palpation & inspection: normal inspection of the chest Breast/axilla inspection: normal inspection of the breasts Breast/axilla palpation: normal palpation of the breasts Resp Effort & Inspection: normal respiratory effort and able to speak in complete sentences Auscultation: clear to auscultation bilaterally Cardio Rate: regular rate Rhythm: regular rhythm Heart sounds: S1 normal heart sound present and S2 normal heart sound present Bruits: no abdominal aortic bruits GI Palpation (GI): No Abdominal aortic bruit present, Soft to palpation, nontender, no guarding and no masses Auscultation: normal bowel sounds General: Yes no CVA tenderness Back/Spine/Pelvis Back: no CVA tenderness and No back tenderness Neuro General: gait normal and moves all extremities Cranial nerves: Yes Equal, round and reactive pupils present Gait exam (Neuro): Normal gait present Extrem General: Yes full ROM, Yes no joint enlargement, Yes no calf tenderness and Yes normal gait Psych Appearance: grossly normal and well kempt Mental Status: mental status grossly normal Speech and movement: Normal speech and movement present Affect: normal affect Results Reviewed Results Reviewed: Name: Arelis Rivera Age/Sex: 59/F : 1965 Unit#: [id number] Attend Dr: Antoinette Varghese MD Re10/07/24 Status: DEP [facility] Disch: SPEC : [id number] IRMA: 10/07/24 STATUS: COMP REQ : [id number] RECD: 10/07/[address]: Antoinette Varghese MD COMP: 10/07/243 ENTERED: 10/07/[address]: ORDERED: AST, ALT, CK Total, Lipid Panel, Vitamin D 25-OH Test Result Flag Reference AST (GOT) 24 5-31 U/L ALT (GPT) 31 0-31 U/L CK Total 67 26-140 U/L Triglyceride 114 <150 mg/dL Desirable Triglyceride: less than 150 mg/dL Borderline High Triglyceride 150-199 mg/dL High Triglyceride: 200-499 mg/dL Very High Triglyceride: greater than or equal to 5OO mg/dL Cholesterol 190 <200 mg/dL Desirable Cholesterol: less than 200 mg/dL Borderline High Cholesterol: 200-239 mg/dL High Cholesterol: greater than 239 mg/dL LDL Calculated 125 H <100 mg/dL Desirable LDL: less than 100 mg/dL Near Optimal/Above Optimal LDL: 110-129 mg/dL Borderline High LDL: 130-159 mg/dL High LDL: 160-189 mg/dL Very High LDL: greater than or equal to 190 mg/dL HDL 43 >40 mg/dL Desirable HDL: greater than 40 mg/dL Note: This HDL assay may give artificially low results in patients with liver disease. Vitamin D 25-OH 50.9 >30 ng/mL Health Based Reference Values* < 20 ng/mL Deficient 20-30 ng/mL Insufficient > 30 ng/mL Sufficient Laboratory Tests 11/29/22 03/24/24 10:04 08:56 Hgb 12.7 Hct 39.5 Fasting Glucose 92 Coding Level of Care Code Est Pt Prev Care 40-64y(37690) Diagnoses Annual visit for general adult medical examination with abnormal findings Z00.01 Dyslipidemia E78.5 Early menopause occurring in patient age younger than 45 years E28.319 Migraine without aura and without status migrainosus, not intractable G43.009 Intractability: not intractable Status migrainosus presence: without status migrainosus Advance directive discussed with patient Z71.89 Additional Codes LOE-7 Assessment Billing - LEO-7 Assessment Tool: LEO-7 Assessment 61615 ([id number]) PHQ-9 - 01538 - PHQ-9 Billing: Yes ([id number]) Assessment & Plan Assessment & Plan (1) Annual visit for general adult medical examination with abnormal findings: Code(s): Z00.01 - Encounter for general adult medical examination with abnormal findings Plan: The patient is a 59-year-old female due for a screening mammogram. She is up-to-date with her Pap smear and colonoscopy. A screening mammogram will be ordered, and the office will assist with scheduling. For her menopausal hair loss, she was advised to use sulfate-free shampoos. She was encouraged to incorporate moderate-intensity cardio exercise into her routine. A follow-up visit is recommended in approximately 6 months. (2) Dyslipidemia: Code(s): E78.5 - Hyperlipidemia, unspecified Category: Medical Plan: Improvement in lipid levels continue with atorvastatin 10 mg daily in addition to adherence to healthy eating regular (3) Early menopause occurring in patient age younger than 45 years: Code(s): E28.319 - Asymptomatic premature menopause Category: Medical Plan: Stressed importance of treating vitamin-D 3 supplements at least 2000 units dailyadequate calcium from dietary sources and engage regular weight-bearing exercise prevent bone loss (4) Migraine without aura: Code(s): G43.009 - Migraine without aura, not intractable, without status migrainosus Category: Medical Qualifiers: Intractability: not intractable Status migrainosus presence: without status migrainosus Qualified Code(s): G43.009 - Migraine without aura, not intractable, without status migrainosus Plan: The patient reports a 2-year history of frequent, diffuse headaches, diagnosed by a neurologist as migraine without aura. A prior brain MRI was unremarkable. She has been non-adherent with the neurologist's recommended preventative regimen. Advised to start Vitamin B2 (riboflavin) 400 mg daily, CoQ10, and magnesium oxide at night as recommended for migraine prevention. Lifestyle modifications, including regular exercise, stretching, and considering massage therapy, were advised. She was also advised to undergo an eye examination to rule out glaucoma or astigmatism as contributing factors. The patient has a scheduled follow-up with neurology on June 09 to assess her progress. (5) Advance directive discussed with patient: Code(s): Z71.89 - Other specified counseling Plan: Initiated the conversation about Advanced Directives. Advanced Directives help patients prepare for current and future decisions about their medical treatment and place of care. Discussed with patient that it is a process where a patients current condition and prognosis are reviewed, their wishes for information regarding their illness are elicited, and likely medical dilemmas are presented and options discussed. Healthcare proxy form completed today. The form can be amended as needed, reviewed yearly and make changes as needed Orders: Orders Complete Blood Count Auto Diff 05/07/25 E28.319 - Asymptomatic premature menopause, E78.5 - Hyperlipidemia, unspecified, G43.009 - Migraine without aura, not intractable, without status migrainosus, Z00.01 - Encounter for general adult medical examination with abnormal findings, Z71.89 - Other specified counseling Lipid Panel 05/07/25 E28.319 - Asymptomatic premature menopause, E78.5 - Hyperlipidemia, unspecified, G43.009 - Migraine without aura, not intractable, without status migrainosus, Z00.01 - Encounter for general adult medical examination with abnormal findings, Z71.89 - Other specified counseling Comprehensive [place]. Panel Fast 05/07/25 E28.319 - Asymptomatic premature menopause, E78.5 - Hyperlipidemia, unspecified, G43.009 - Migraine without aura, not intractable, without status migrainosus, Z00.01 - Encounter for general adult medical examination with abnormal findings, Z71.89 - Other specified counseling Vitamin D 25-OH Total 05/07/25 E28.319 - Asymptomatic premature menopause, E78.5 - Hyperlipidemia, unspecified, G43.009 - Migraine without aura, not intractable, without status migrainosus, Z00.01 - Encounter for general adult medical examination with abnormal findings, Z71.89 - Other specified counseling MM tomosynthesis screening BI 05/03/25 Z12.31 - Encounter for screening mammogram for malignant neoplasm of breast
[2025-05-03 09:26] VITALS: BP 108/70; PULSE 67; TEMP 36.6; O2SAT 97; BMI 25.3
== END 2025-05-03 10:25 | disposition home or self-care (01) ==
LOC: HO.HMCC 08:44
PROVIDERS: PCP Internal Medicine; Visit Provider Internal Medicine
DX: Z00.01 Encounter for general adult medical examination with abnormal findings (principal); E78.5 Hyperlipidemia, unspecified; E28.319 Asymptomatic premature menopause; G43.009 Migraine without aura, not intractable, without status migrainosus; Z71.89 Other specified counseling

== ENCOUNTER → 2025-05-03 08:43 | Outpatient (BNVA) | payer OTHER, SELFPAY | PROVIDERS: PCP Internal Medicine; Visit Provider Internal Medicine | DX: Z00.01 Encounter for general adult medical examination with abnormal findings (principal); E28.310 Symptomatic premature menopause; L65.9 Nonscarring hair loss, unspecified; E78.5 Hyperlipidemia, unspecified; G43.009 Migraine without aura, not intractable, without status migrainosus; H93.19 Tinnitus, unspecified ear; Z71.89 Other specified counseling; Z79.899 Other long term (current) drug therapy | CPT/HCPCS: 96127; 99396 ==

== ENCOUNTER 2025-05-07 08:58 | Outpatient (REF) | payer OTHER, SELFPAY ==
--- OUTSIDE RECORDS SUMMARY | 2025-05-07 09:57 | XMS_ITS | Encounter Summary ---
Author Organization [facility] Address [address] [place] [phone] Phone Care Team Providers Care Fishing Vessel Captain Name Role Phone Neeta Schmidt MD Primary Care Provider Davida ble Encounter Details Date Type Department Care Team (Latest Contact Info) Description 10/16/2017 Transcribe Orders [facility] Phleb [address] [place] [address] Neeta Schmidt MD Mixed hyperlipidemia (Primary Dx) Social History Tobacco Use Types Packs/Day Years Used Date Smoking Tobacco: Never Assessed Comments No Sex and Gender Information Value Date Recorded Sex Assigned at Not on file Legal Sex Female 5:54 PM EDT Gender Identity Not on file Sexual Orientation Not on file documented as of this encounter Plan of Treatment Not on file documented as of this encounter Results * (ABNORMAL) Lipid panel (10/16/2017 10:14 AM EDT) HDL 49 mg/dL [facility] Comment: Interpretation: Risk Level Females Decreased >55mg/dL Average 50-55 mg/dL Increased <50 mg/dL CHOLESTEROL 252(H) 0 - 240 mg/dL [facility] TRIGLYCERIDES 130 30 - 160 mg/dL [facility] LDL 177(H) 50 - 129 mg/dL [facility] Comment: LDL levels in terms of risk for coronary heart disease: <100 mg/dL: Optimal 100-129 mg/dL: Near or above optimal 130-159 mg/dL: Borderline high 160-189 mg/dL: High >190 mg/dL: Very High CARDIAC RISK RATIO 5.1(H) 3.3 - 4.4 C [facility] Blood 10/16/2017 10:1 4 AM EDT 10/16/2017 10:15 AM EDT us Neeta Schmidt MD LAB BLOOD BKR ORDERABLES Final Result [address] [address] documented in this encounter Visit Diagnoses Diagnosis Mixed hyperlipidemia- Primary documented in this encounter Care Teams Fishing Vessel Captain Relationship Specialty Start Date End Date Neeta Schmidt MD PCP - General Nephrology 06/28/17 documented as of this encounter Additional Source Comments The information contained in this document represents components of the legal health record. It is not the complete legal health record.[facility]
--- OUTSIDE RECORDS SUMMARY | 2025-05-07 09:57 | XMS_ITS | Encounter Summary ---
Author Organization [facility] Address [address] [place] [address] Phone Care Team Providers Care Fuse Coiler Name Role Phone Neeta Schmidt MD Primary Care Provider Davida ble Encounter Details Date Type Department Care Team (Late st Contact Info) Description 06/28/2017 Ancillary Orders Virtual Department [address] [place] [address] Neeta Schmidt MD Breast screening Social History Tobacco Use Types Packs/Day Years Used Date Smoking Tobacco: Never Assessed Comments Unknown Sex and Gender Information Value Date Recorded Sex Assigned at Not on file Legal Sex Female 5:54 PM EDT Gender Identity Not on file Sexual Orientation Not on file documented as of this encounter Plan of Treatment Not on file documented as of this encounter Results * BI MAMMOGRAM SCREENING WITH TOMOSYNTHESIS WITH CAD (BILATERAL) (08/06/2017 10:20 AM EST) Anatomical Region Laterality Modality Breast Left, Breast Right, Breast Bilateral Bila teral Mammography 08/06/2017 1:06 PM EST Impressions 08/06/2017 1:10 PM EST No mammographic findings suspicious for malignancy. Annual screening is recommended. BI-RADS CATEGORY: 2 - Benign finding. DENSITY: There are scattered fibroglandular densities. POS - [id number] Narrative 08/06/2017 1:10 PM EST Bilateral mammography is performed in conjunction with computed aided detection. 3-D tomography along with 2-D C view imaging was also performed. No prior studies for comparison. This will serve as a baseline exam. There are numerous scattered bilateral punctate microcalcifications. No area is more suspicious than another. No suspicious masses, areas of architectural distortion or suspicious clusters of microcalcifications. Procedure Note Wilder Banuelos MD - 08/06/2017 Bilateral mammography is performed in conjunction with computed aideddetection. 3-D tomography along with 2-D C view imaging was alsoperformed. No prior studies for comparison. This will serve as a baseline exam. There are numerous scattered bilateral punctate microcalcifications. Noarea is more suspicious than another. No suspicious masses, areas ofarchitectural distortion or suspicious clusters of microcalcifications. IMPRESSION: No mammographic findings suspicious for malignancy. Annual screening isrecommended. BI-RADS CATEGORY: 2 - Benign finding. DENSITY: There are scattered fibroglandular densities. POS - CDHMAM2 Neeta Schmidt MD IMG MG EXAMS Final Result documented in this encounter Visit Diagnoses Diagnosis Breast screening Breast screening, unspecified Breast screening Breast screening, unspecified documented in this encounter Care Teams Fuse Coiler Relationship Specialty Start Date End Date Neeta Schmidt MD PCP - General Nephrology 06/28/17 documented as of this encounter Additional Source Comments The information contained in this document represents components of the legal health record. It is not the complete legal health record.[facility]
--- OUTSIDE RECORDS SUMMARY | 2025-05-07 09:57 | XMS_ITS | Encounter Summary ---
Author Organization [facility] Address [address] [place] [address] [place] [address] Phone Care Team Providers Care Rehabilitation Specialist Name Role Phone Neeta Schmidt MD Primary Care Provider Unavaila ble Encounter Details Date Type Department Care Team (Late st Contact Info) Description 09/13/2017 Ancillary Orders Virtual Department [address] [place] [address] Neeta Schmidt MD Right shoulder pain, unspecified chronicity Social History Tobacco Use Types Packs/Day Years Used Date Smoking Tobacco: Never Assessed Comments No Sex and Gender Information Value Date Recorded Sex Assigned at Not on file Legal Sex Female 5:54 PM EDT Gender Identity Not on file Sexual Orientation Not on file documented as of this encounter Plan of Treatment Not on file documented as of this encounter Results * XR SHOULDER 2 VIEWS (RIGHT) (09/23/2017 5:09 PM EDT) Anatomical Region Laterality Modality Shoulder Right Radiographic Sona ging 09/23/2017 5:12 PM EDT Impressions 09/23/2017 5:12 PM EDT No significant bony abnormality. POS [id number] Narrative 09/23/2017 5:12 PM EDT Three views were obtained and disclose no fracture, subluxation, or other significant abnormality involving the visualized regional skeletal structures. No aberrant soft tissue calcifications of significance are noted. Procedure Note Belgica Marcus MD - 09/23/2017 Three views were obtained and disclose no fracture, subluxation, or othersignificant abnormality involving the visualized regional skeletalstructures. No aberrant soft tissue calcifications of significance arenoted. IMPRESSION: No significant bony abnormality. POS [id number] Neeta Schmidt MD IMG XR UPPER EXTREMITY Final Re sult documented in this encounter Visit Diagnoses Diagnosis Right shoulder pain, unspecified chronicity Right shoulder pain, unspecified chronicity documented in this encounter Care Teams Rehabilitation Specialist Relationship Specialty Start Date End Date Neeta Schmidt MD PCP - General Nephrology 06/28/17 documented as of this encounter Additional Source Comments The information contained in this document represents components of the legal health record. It is not the complete legal health record.[facility]
--- OUTSIDE RECORDS SUMMARY | 2025-05-07 09:58 | XMS_ITS | Clinical Summary ---
Author Organization [facility] Address [address] [place] [address] [place] [address] Phone Care Team Providers Care Squirrel Man Name Role Phone Neeta Schmidt MD Primary Care Provider Unavaila ble Social History Tobacco Use Types Packs/Day Years Used Date Smoking Tobacco: Never Assessed Education Answer Date Recorded Are you interested in more education? Not on jv e 10/26/2022 Are you concerned about learning? Not on file 10/26/2022 No 10/26/2022 No 10/26/2022 Digital Access Answer Date Recorded No 11/27/2022 No 11/27/2022 Reliable internet access at home? Not on file 11/27/2022 Device with a working camera? Not on file Comments No Sex and Gender Information Value Date Recorded Sex Assigned at Not on file Legal Sex Female 5:54 PM EDT Gender Identity Not on file Sexual Orientation Not on file Plan of Treatment Health Maintenance Due Date Last Done Comments Adult Td,Tdap Booster 1965 DEPRESSION SCREENING 1977 SMOKING Hx and SMOKELESS TOBACCO SCREENING 1978 HEPATITIS C SCREENING 1983 HIV ONE-TIME SCREENING (18-6 5 YEARS) 1983 PAP SMEAR 1986 COLOGUARD 2010 COLONOSCOPY 2010 COLORECTAL CANCER SCREENING 2010 FIT TEST 2010 FOBT 2010 SIGMOIDOSCOPY 2010 VIRTUAL COLONOSCOPY 2010 PNEUMOCOCCAL VACCINES (50+ years) (1 of 1 - PCV) 2015 ZOSTER VACCINES (1 of 2) 2015 MAMMOGRAM 08/12/2020 08/12/2018, 08/06/2017 LIPID PANEL 10/16/2022 10/16/2017 INFLUENZA VACCINE (#1) 2025 COVID-19 VACCINE ( - 2024-2 6 season) 2025 RSV VACCINE (1 - 1-dose 75+ series) 2040 HEPATITIS A VACCINES Aged Out No long er eligible based on patient's age to complete this topic HIB VACCINES Aged Out No longer eligi ble based on patient's age to complete this topic IPV VACCINES Aged Out No longer eligi ble based on patient's age to complete this topic MENINGOCOCCAL VACCINES (ACWY) Aged Out No longer eligible based on patient's age to complete this topic MENINGOCOCCAL VACCINES (B) Aged Out N o longer eligible based on patient's age to complete this topic Medical Devices Not on file Procedures Procedure Name Priority Date/Time Associated Diagnosis Comments BI MAMMOGRAM SCREENING WITH TOMOSYNTHESIS WITH CAD (BILATERAL) Routine 08/12/2018 10:44 AM EST Breast screening LIPID PANEL Routine 10/16/2017 10:14 AM EDT Mixed hyperlipidemia from Last 3 Months or Most Recently Relevant to Health Maintenance Results * BI MAMMOGRAM SCREENING WITH TOMOSYNTHESIS WITH CAD (BILATERAL) (08/12/2018 10:44 AM EST) Anatomical Region Laterality Modality Breast Left, Breast Right, Breast Bilateral Bila teral Mammography 08/12/2018 12:3 4 PM EST Impressions 08/12/2018 12:36 PM EST Stable appearance relative to prior imaging. No findings suggestive of malignancy are seen. BI-RADS CATEGORY: 2 - Benign finding. DENSITY: The breast tissue is heterogeneously dense, an appearance which lowers the sensitivity of mammography. POS - [id number] Narrative 08/12/2018 12:36 PM EST Full-field digital mammography is obtained with computer-aided detection. Comparison with prior imaging from 08/06/2017 is made. There is heterogeneous fibroglandular density evident in the breasts. In addition to 2-D C view imaging, tomosynthesis images are obtained in two projections of each breast. Scattered bilateral punctate calcifications are unchanged.. No dominant soft tissue mass of concern, suspicious cluster of calcifications, significant interval skin changes, or architectural distortion is identified. Procedure Note Brian Ward MD - 08/12/2018 Full-field digital mammography is obtained with computer-aided detection.Comparison with prior imaging from 08/06/2017 is made. There is heterogeneous fibroglandular density evident in the breasts. Inaddition to 2-D C view imaging, tomosynthesis images are obtained in twoprojections of each breast. Scattered bilateral punctate calcifications are unchanged.. No dominantsoft tissue mass of concern, suspicious cluster of calcifications,significant interval skin changes, or architectural distortion isidentified. IMPRESSION: Stable appearance relative to prior imaging. No findings suggestive ofmalignancy are seen. BI-RADS CATEGORY: 2 - Benign finding. DENSITY: The breast tissue is heterogeneously dense, an appearance whichlowers the sensitivity of mammography. POS - [id number] Neeta Schmidt MD IMG MG EXAMS Final Result * (ABNORMAL) Lipid panel (10/16/2017 10:14 AM EDT) HDL 49 mg/dL [facility] Comment: Interpretation: Risk Level Females Decreased >55mg/dL Average 50-55 mg/dL Increased <50 mg/dL CHOLESTEROL 252(H) 0 - 240 mg/dL [facility] TRIGLYCERIDES 130 30 - 160 mg/dL [facility] LDL 177(H) 50 - 129 mg/dL [facility] Comment: LDL levels in terms of risk for coronary heart disease: <100 mg/dL: Optimal 100-129 mg/dL: Near or above optimal 130-159 mg/dL: Borderline high 160-189 mg/dL: High >190 mg/dL: Very High CARDIAC RISK RATIO 5.1(H) 3.3 - 4.4 C [facility] Blood 10/16/2017 10:1 4 AM EDT 10/16/2017 10:15 AM EDT Neeta Schmidt MD LAB BLOOD BKR ORDERABLES Final Result [facility] [address] [place] [address] from Last 3 Months or Most Recently Relevant to Health Maintenance Insurance [employer] FULL [employer] LIMITED Thingies [facility] NET FULL [employer]iac Dimensions LIMITED Thingies [facility] NET FULL Cardiac Dimensions LIMITED [employer] NET FULL [facility] [employer] SAFET[employer] NET FULL [facility] [employer] S[employer] NET FULL [facility] [employer] NET FULL [facility] [employer] SAFETY NET FULL [facility] LIMITED [facility] NET FULL Care Teams Squirrel Man Relationship Specialty Start Date End Date Neeta Schmidt MD PCP - General Nephrology 06/28/17 Additional Source Comments The information contained in this document represents components of the legal health record. It is not the complete legal health record.[facility]
--- OUTSIDE RECORDS SUMMARY | 2025-05-07 09:58 | XMS_ITS | Encounter Summary ---
Author Organization [facility] Address [address] [place] [address] [place] [address] Phone Care Team Providers Care Fig Washer Name Role Phone Neeta Schmidt MD Primary Care Provider Davida ble Encounter Details Date Type Department Care Team (Late st Contact Info) Description 08/06/2017 Ancillary Orders Virtual Department [address] [place] [address] Neeta Schmidt MD Breast screening Social History [...] lowers the sensitivity of mammography. POS - [id number] Narrative 08/12/2018 12:36 PM EST Full-field digital [...] whichlowers the sensitivity of mammography. POS - [id number] Neeta Schmidt MD IMG MG EXAMS Final Result documented in this encounter Visit Diagnoses Diagnosis Breast screening Breast screening, unspecified Breast screening Breast screening, unspecified documented in this encounter Care Teams Fig Washer Relationship Specialty Start Date End Date Neeta Schmidt MD PCP - General Nephrology 06/28/17 documented as of this encounter Additional Source Comments The information contained in this document represents components of the legal health record. It is not the complete legal health record.[facility]
[2025-05-07 10:21] LABS: MANUAL DIFF FLAG NO
[2025-05-07 10:32] LABS: Hematocrit 41.7 % (37.0-47.0); Hemoglobin 13.3 g/dl (12.0-16.0); Imm Gran Abs Auto 0.03 X10*3/uL (0.00-0.03); Imm Gran Pct Auto 0.3 % (0.0-0.4); Lymphocytes Absolute Auto 3.8 X10*3/uL (1.2-4.9); Mean Corpuscular HGB Conc 31.9 g/dl (31.0-35.0); Mean Corpuscular Hemoglobin 28.9 pg (27.0-33.0); Mean Corpuscular Volume 90.7 fL (80.0-98.0); NRBC Abs Auto 0.000 X10*3/uL (0.0-0.012); NRBC Pct Auto 0.0 /100WBC (0.0-0.2); Platelet Count 291 X10*3/uL (160-400); Red Blood Count 4.60 X10*6/uL (4.20-5.50); White Blood Count 9.2 X10*3/uL (4.8-10.8)
[2025-05-07 11:13] LABS: Alanine Aminotransferase 25 U/L (0-31); Albumin Level 4.2 g/dL (3.5-5.0); Alkaline Phosphatase 59 U/L (39-117); Anion Gap 10 (12-20); Aspartate Amino Transferase 22 U/L (5-31); Blood Urea Nitrogen 11 mg/dL (9-16); Calcium 8.7 mg/dL (8.4-10.2); Carbon Dioxide 28 mmol/L (22-29); Chloride 106 mmol/L (96-108); Cholesterol 211 mg/dL (<200); Estimated Glomerular Filt Rate > 60; HDL Cholesterol 40 mg/dL (>40); Potassium 4.0 mmol/L (3.3-5.1); Sodium 140 mmol/L (135-145); Total Protein 7.6 g/dL (6.5-8.0); Triglycerides 172 mg/dL (<150)
== END 2025-05-07 08:59 | disposition home or self-care (01) ==
LOC: HO.HMGCLDS 08:58
PROVIDERS: PCP Internal Medicine; Visit Provider Internal Medicine
DX: Z00.01 Encounter for general adult medical examination with abnormal findings (principal); G43.009 Migraine without aura, not intractable, without status migrainosus; E78.5 Hyperlipidemia, unspecified; E28.319 Asymptomatic premature menopause; Z71.89 Other specified counseling
CPT/HCPCS: 36415; 80053; 80061; 82306; 85025

== ENCOUNTER 2025-06-09 13:41 | Outpatient (AMB) | payer OTHER, SELFPAY ==
[2025-06-09 14:05] VITALS: BP 120/68; PULSE 60; O2SAT 95; BMI 24.5
--- NOTE | 2025-06-09 14:05 | A.OFFVIS_ITS ---
Vital Signs 06/09/25 14:05 Height 5 ft 6 in Weight 152 lb BMI 24.5 BP 120/68 Blood Pressure Location Rt brachial Position Sitting Pulse 60 Pulse Source Pulse Oximeter Pulse Oximetry (%) 95 Oxygen Delivery Method Room Air Intake Visit Reasons: 6m follow up Cutter Hand Required: No Accompanied by: Self / Same As Patient Allergies rosuvastatin Adverse Reaction (Mild, Verified 05/03/25 09:50) headaches HPI Comments Details: Right-handed 59-yr-old female presents for follow-up of migraine headache. She reports she continues to have headaches that come and go. She states she is having at least 6 migraine attacks per month The migraine always wakes her up around 6-6:30am. She goes to bed around 11pm- 12am. * Denies usual neck pain * She has never had a sleep study. * She denies snoring, gasping arousals, unrefresing sleep. * She states she usually has a lot of energy- like her father. * Her mother has sleep apnea and obesity- uses CPAP She never rec'd the B2 or Co-Q-10. She states the Mag seemed to worsen her headaches. She is using Tylenol with some effect. 02/05/2025, HPI: * Interval brain MRI on 12/25/2024 compared to 2020 study: stable, non-specific T2 FLAIR subcortical white matter signal changes; no acute abnormality or abnormal enhancement. * MRI images and report reviewed with patient via televideo screen share. * No history of stroke, hypertension, or diabetes. * History of HLD on medication management. * Most recent cholesterol panel (September 2024): triglycerides 114, cholesterol 190, LDL 125, HDL 43 ? improved compared to March 2024. * Reports ongoing bothersome headaches. * Did not initiate previously ordered migraine prevention supplements due to preference to await updated MRI. * Now agreeable to start the supplements as previously ordered and add Co Q10 supplement. * Hesitant to take multiple prescriptions; will continue OTC ibuprofen as needed. 12/08/2024, initial HPI: Right-handed 59-yr-old female presents for new pt evaluation of headache disorder. Pt reports she has had headaches her whole life which can be in any place on her head, but in the last year she is having a newer pressure headache in bilateral anterior temporal/masseter region in the last year. She comes today as she would like to further investigate her headaches. She did previously see neurology many years ago. PMH and ROS are notable for:? General: glasses for reading- denies vision changes Neuro: headaches Musculoskeletal disorders or injury: did PT for her back as a teenager, more recently if she sleeps > 6 hrs she will wake up with back pain- her mattress is firm History of concussion/head injury: denies Mood d/o: can be more irritable, impatient, Anxiety. not currently seeing a therapist Respiratory d/o: denies CV disease: HLD- on statin Clotting or hematology d/o: denies Endocrine or metabolic d/o: denies History of seizure: denies. 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 Substance use: denies Exercise:?Excercised regularly before her granddtr was born 6 yrs ago- but not much since- but plans to start again now that she is in school. 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 Age/time of onset: Migraine without aura started in young childhood. New bilateral anterior temporal/masseter region headache started within the last year. Preceding causes: Denies Previous work-up: 2020 brain MRI w/wo- unremarkable- however this was before new bitemporal headache Types of headache disorders: 1-2 Typical headache characteristics: Prodrome symptoms: denies Aura: denies Pain intensity: moderate-severe Location, quality, characteristics: Varies in bilateral masseter throbbing, or pressure in top, back, or either side of head. Associated symptoms: phonophobia, allodynia, nausea, activity intolerance Postdrome: denies Triggers: sometimes stress, skipping coffee Time of day: No specific time of day- may wake her up or can come in the middle of the day Duration and Frequency: Each headache lasts hours, and can occur 2-3 days per week, but then may have a week w/o any headache. How does headache impact your life? tries to push through the headache- but sometimes just has to sit completely still Current acute medication use/interventions: Ibuprofen liquigel 2-3 caps at onset. Current preventative medication use: denies Current non-pharmacological interventions: sitting still/rest [facility] Medical History Early menopause occurring in patient age younger than 45 years Dyslipidemia Surgical History History of Family History Mother Prediabetes Father Family history of prostate problems Maternal Aunt Alzheimer's dementia Social History (Updated 05/08/25 @ 22:38 by Antoinette Varghese MD) Housing: House Patient Tobacco Use Status: Never used Tobacco e-Cigarette/Vaping Use: Never Used Second Hand Smoke Exposure: No service: No Current occupational status: employed Cognitive needs: No Hearing needs: No Vision needs: No Physical Exam Vital Signs: Last Vital Signs Pulse 60 06/09/25 14:05 BP 120/68 06/09/25 14:05 Pulse Ox 95 06/09/25 14:05 Oxygen Delivery Method Room Air 12/10/25 14:05 BMI result Body Mass Index 24.5 Const Orientation/consciousness: patient oriented x3 Resp Effort & Inspection: normal respiratory effort and able to speak in complete sentences Neuro General: patient oriented x3 Cranial nerves: Yes CN's II-XII intact bilaterally Cognition (Neuro): normal cognition Psych Appearance: grossly normal Mental Status: mental status grossly normal Speech and movement: Normal speech and movement present Affect: normal affect Attitude: cooperative Thought process: Normal thought process present Results Reviewed Results Reviewed: 03/2021, MR/MR head/brain wo/w con IMPRESSION: Previously seen apparent hypodensity within the left medulla on CT was artifactual. There is no abnormal signal within the brainstem. Mild chronic microangiopathy. No enhancing lesions. Assessment & Plan Assessment & Plan (1) Migraine without aura: Code(s): G43.009 - Migraine without aura, not intractable, without status migrainosus Category: Medical Qualifiers: Intractability: not intractable Status migrainosus presence: without status migrainosus Qualified Code(s): G43.009 - Migraine without aura, not intractable, without status migrainosus (2) White matter abnormality on MRI of brain: Comment: Very mild focal changes. 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 Patient encouraged to continue to optimize her cardiovascular and metabolic risk factors. In addition to engaging in regular physical activity, maintaining an optimal sleep schedule is also important. For overall headache management: * Optimize good self-care, including but not limited to maintaining a healthy diet, adequate fluid intake, adequate sleep, and engaging in regular physical activity. * Track headaches, especially after any treatment regimen changes. Migraine [employer] is one of many headache tracking apps. * Information shared on non-pharmacological interventions which may help to alleviate headache attack burden. For sound sensitivity: Patent may benefit from trying noise cancellation ear plugs. * Trial wearing a low profile mouth guard at bedtime- may help reduce signs of bruxism and bitemporal headache. For acute headache treatment: Is important to take acute medications at the first sign of headache, however stressed importance of avoiding acute medication overuse (especially with combined headache medications). May continue Tylenol 650-1000 mg every 4-6 hours as needed May alternate with Ibuprofen liquigel 200mg- 2 caps every 4 hours as needed. Hold Sumatriptan order at this time, per patient preference Previous acute migraine medication trials: none other Acute migraine medication contraindications: None at this time For headache prevention medication: Preventative medications, including supplements, can reduce the frequency and intensity of migraine attacks. For best effect, these should be taken routinely for at least 2-3 months. Riboflavin 400mg daily in the morning Magnesium 400mg daily at bedtime Co Q10 400 mg daily in the morning, take with a higher fat meal. Previous migraine prevention medication trials: None Migraine prevention medication contraindications: None at this time Follow-up in clinic in 6 months or sooner as needed Coding Level of Care Code Est Pt Level 3 (28440) Diagnoses Migraine without aura and without status migrainosus, not intractable G43.009 Intractability: not intractable Status migrainosus presence: without status migrainosus White matter abnormality on MRI of brain R90.82
--- OUTSIDE RECORDS SUMMARY | 2025-06-09 21:15 | XMS_ITS | Encounter Summary ---
Author Organization [facility] Address [address] [place] [address] [place] [address] Phone Care Team Providers Care Dry Room Attendant Name Role Phone Neeta Schmidt MD Primary Care Provider Unavaila ble Encounter Details Date Type Department Care Team (Late st Contact Info) Description 09/13/2017 Ancillary Orders Virtual Department [address] [place] [address] Neeta Schmidt MD Right shoulder pain, unspecified [...] PM EDT No significant bony abnormality. POS [id number] Narrative 09/23/2017 5:12 PM EDT Three views [...] arenoted. IMPRESSION: No significant bony abnormality. POS [id number] Neeta Schmidt MD IMG XR UPPER EXTREMITY Final Re sult documented in this encounter Visit Diagnoses Diagnosis Right shoulder pain, unspecified chronicity Right shoulder pain, unspecified chronicity documented in this encounter Care Teams Dry Room Attendant Relationship Specialty Start Date End Date Neeta Schmidt MD PCP - General Nephrology 06/28/17 documented as of this encounter Additional Source Comments The information contained in this document represents components of the legal health record. It is not the complete legal health record.[facility]
--- OUTSIDE RECORDS SUMMARY | 2025-06-09 21:15 | XMS_ITS | Encounter Summary ---
Author Organization [facility] Address [address] [facility] [address] [place] [address] Phone Care Team Providers Care Farm Operator Name Role Phone Neeta Schmidt MD Primary Care Provider Davida ble Encounter Details Date Type Department Care Team (Late st Contact Info) Description 06/28/2017 Ancillary Orders Virtual Department [address] [place] [address] Neeta Schmidt MD Breast screening Social History [...] unspecified documented in this encounter Care Teams Farm Operator Relationship Specialty Start Date End Date Neeta Schmidt MD PCP - General Nephrology 06/28/17 documented as of this encounter Additional Source Comments The information contained in this document represents components of the legal health record. It is not the complete legal health record.[facility]
--- OUTSIDE RECORDS SUMMARY | 2025-06-09 21:15 | XMS_ITS | Clinical Summary ---
Author Organization [facility] Address [address] [place] [address] [place] [address] Phone Care Team Providers Care Flight Information Expediter Name Role Phone Neeta Schmidt MD Primary [...] lowers the sensitivity of mammography. POS - [id number] Narrative 08/12/2018 12:36 PM EST Full-field digital [...] whichlowers the sensitivity of mammography. POS - [id number] us Neeta Schmidt MD IMG MG EXAMS Final Result * (ABNORMAL) Lipid panel (10/16/2017 10:14 AM EDT) HDL 49 mg/dL [facility] Comment: Interpretation: Risk Level Females Decreased >55mg/dL Average 50-55 mg/dL Increased <50 mg/dL CHOLESTEROL 252(H) 0 - 240 mg/dL [facility] TRIGLYCERIDES 130 30 - 160 mg/dL [facility] LDL 177(H) 50 - 129 mg/dL [facility] Comment: LDL levels in terms of risk for coronary heart disease: <100 mg/dL: Optimal 100-129 mg/dL: Near or above optimal 130-159 mg/dL: Borderline high 160-189 mg/dL: High >190 mg/dL: Very High CARDIAC RISK RATIO 5.1(H) 3.3 - 4.4 C [facility] Blood 10/16/2017 10:1 4 AM EDT 10/16/2017 10:15 AM EDT us Neeta Schmidt MD LAB BLOOD BKR ORDERABLES Final Result [address] [id number] from Last 3 Months or Most Recently Relevant to Health Maintenance Insurance [employer] NET FULL [employer] NET FULL [employer] in [employer] SAF[employer] NET FULL [employer] LIMITED [facility] SAFETY NET FULL Networks in [employer] SAFETY NET [employer]ULL [employer] in [employer]AFETY NET FULL [employer] NET FULL [employer] in [employer] [facility] FULL Member Subscriber Plan / Payer (Ef fective 2017-Present) Name:Arelis Quinones Relation to Subscriber:Self Name:Arelis Quinones Payer ID:Not on file Group ID:Not on file Type:Medicaid Address: [place] [id number] [facility] NET FULL Care Teams Flight Information Expediter Relationship Specialty Start Date End Date Neeta Schmidt MD PCP - General Nephrology 06/28/17 Additional Source Comments The information contained in this document represents components of the legal health record. It is not the complete legal health record.[facility]
--- OUTSIDE RECORDS SUMMARY | 2025-06-09 21:15 | XMS_ITS | Encounter Summary ---
Author Organization [facility] Address [address] [place] [address] [place] [address] Phone Care Team Providers Care Charter Boat Operator Name Role Phone Neeta Schmidt MD Primary Care Provider Davida ble Encounter Details Date Type Department Care Team (Late st Contact Info) Description 08/06/2017 Ancillary Orders Virtual Department [address] [place] [address] Neeta Schmidt MD Breast screening Social History [...] lowers the sensitivity of mammography. POS - [id number] Narrative 08/12/2018 12:36 PM EST Full-field digital [...] whichlowers the sensitivity of mammography. POS - [id number] Neeta Schmidt MD IMG MG EXAMS Final Result documented in this encounter Visit Diagnoses Diagnosis Breast screening Breast screening, unspecified Breast screening Breast screening, unspecified documented in this encounter Care Teams Charter Boat Operator Relationship Specialty Start Date End Date Neeta Schmidt MD PCP - General Nephrology 06/28/17 documented as of this encounter Additional Source Comments The information contained in this document represents components of the legal health record. It is not the complete legal health record.[facility]
--- OUTSIDE RECORDS SUMMARY | 2025-06-09 21:15 | XMS_ITS | Encounter Summary ---
Author Organization [facility] Address [address] [place] [id number] Phone Care Team Providers Care Senior Administrator Support Name Role Phone Neeta Schmidt MD Primary Care Provider Davida ble Encounter Details Date Type Department Care Team (Latest Contact Info) Description 10/16/2017 Transcribe Orders [facility]le[facility] [address] [place] [address] Neeta Schmidt MD Mixed hyperlipidemia (Primary Dx) [...] (10/16/2017 10:14 AM EDT) HDL 49 mg/dL [facility] Comment: Interpretation: Risk Level Females Decreased >55mg/dL Average 50-55 mg/dL Increased <50 mg/dL CHOLESTEROL 252(H) 0 - 240 mg/dL [facility] TRIGLYCERIDES 130 30 - 160 mg/dL [facility] LDL 177(H) 50 - 129 mg/dL [facility] Comment: LDL levels in terms of risk for coronary heart disease: <100 mg/dL: Optimal 100-129 mg/dL: Near or above optimal 130-159 mg/dL: Borderline high 160-189 mg/dL: High >190 mg/dL: Very High CARDIAC RISK RATIO 5.1(H) 3.3 - 4.4 [facility] Blood 10/16/2017 10:1 4 AM EDT 10/16/2017 10:15 AM EDT us Neeta Schmidt MD LAB BLOOD BKR ORDERABLES Final Result [address] [id number] documented in this encounter Visit Diagnoses Diagnosis Mixed hyperlipidemia- Primary documented in this encounter Care Teams Senior Administrator Support Relationship Specialty Start Date End Date Neeta Schmidt MD PCP - General Nephrology 06/28/17 documented as of this encounter Additional Source Comments The information contained in this document represents components of the legal health record. It is not the complete legal health record.[facility]
== END 2025-06-09 14:57 | disposition home or self-care (01) ==
LOC: HO.HSMS 13:42
PROVIDERS: PCP Internal Medicine; Visit Provider Nurse Practitioner Family
DX: G43.009 Migraine without aura, not intractable, without status migrainosus (principal); R90.82 White matter disease, unspecified
CPT/HCPCS: 99213

== ENCOUNTER → 2025-06-09 13:41 | Outpatient (BNVA) | payer OTHER, SELFPAY | PROVIDERS: PCP Internal Medicine; Visit Provider Nurse Practitioner Family | DX: G43.009 Migraine without aura, not intractable, without status migrainosus (principal); R90.82 White matter disease, unspecified | CPT/HCPCS: 99212 ==